=== PATIENT | male | born 1990 | race Caucasian/White ===

== ENCOUNTER 2019-06-02 09:18 | Emergency (ER) | payer OTHER ==
[~2019-06-02] VITALS: Ht 193 cm; Wt 111.1 kg
--- NOTE | ~2019-06-02 | EKG ---
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
--- NOTE | ~2019-06-02 | EKG ---
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
[~2019-06-02 09:18] MED LIST: AMOXICILLIN500 MG PO; ANAPROX DS550 MG PO; ATARAX25 MG PO; AUGMENTIN 875875 MG PO; BACTRIM DS 8001 TA1 PO; ELIMITE 5%60 GM PO; NKHM; PREDNISONE20 MG PO; VICODIN 5/500 505 MG PO; ZITHROMAX Z PA250 MG PO
[2019-06-02 09:40] LABS: BASO # 0.1 10*3/uL (0.0-0.1); BASO % 0.4 % (0.0-1.0); EOS # 0.2 10*3/uL (0.0-0.4); EOS % 1.4 % (1.0-4.0); HEMOGLOBIN 14.4 g/dl (14.0-18.0); LYMPH # 4.3 10*3/uL (1.3-4.4); LYMPH % 33.5 % (27.0-41.0); MEAN CELL VOLUME 87.9 fl (80.0-94.0); MEAN CORPUSCULAR HGB 30.1 pg (27.0-31.0); MEAN CORPUSCULAR HGB CONC 34.3 g/dl (33.0-37.0); MEAN PLATELET VOLUME 9.7 fl (9.6-12.3); MONO # 0.9 10*3/uL (0.1-1.0); MONO % 6.9 % (3.0-9.0); NEUT # 7.4 10*3/uL (2.3-7.9); NEUT % 57.6 % (47.0-73.0); PLATELET COUNT AUTOMATED 287 10*3/uL (130-400); RED BLOOD COUNT 4.78 10*6/uL (4.50-5.90); RED CELL DISTRI WIDTH 12.6 % (0-14.5); WHITE BLOOD COUNT 12.9 10*3/uL (4.8-10.8)
[2019-06-02 09:52] LABS: ACT PARTIAL THROMBO TIME 26.3 SECONDS (20.0-32.1); INTERNATIONAL NORM RATIO 0.9 (2.0-3.5)
[2019-06-02 09:55] LABS: ALBUMIN 4.1 gm/dl (3.1-4.5); ALKALINE PHOSPHATASE 77 U/L (45-117); BUN 11 mg/dl (7-24); CHLORIDE 105 mmol/L (98-107); CREATININE 0.82 mg/dL (0.70-1.30); POTASSIUM 3.4 mmol/L (3.5-5.1); SGOT/AST 17 IU/L (3-35); SGPT/ALT 37 U/L (12-78); SODIUM 139 mmol/L (136-145)
[2019-06-02 09:57] LABS: TROPONIN I < 0.015 ng/ml (<0.045)
[2019-06-02] MEDS ORDERED: NAPROSYN500 MG PO (13:11)
== END 2019-06-02 13:26 | disposition home or self-care (01) ==
LOC: ED 09:18
PROVIDERS: Emergency Medicine
DX: R07.89 Other chest pain (principal); F17.200 Nicotine dependence, unspecified, uncomplicated; X58.XXXA Exposure to other specified factors, initial encounter; Y93.89 Activity, other specified; Y92.89 Other specified places as the place of occurrence of the external cause; Y99.0 Civilian activity done for income or pay

== ENCOUNTER 2019-06-12 08:16 | Emergency (ER) | payer OTHER ==
[~2019-06-12] VITALS: Ht 193 cm; Wt 111.1 kg
[~2019-06-12 08:16] MED LIST changes: +NAPROSYN500 MG PO
[2019-06-12 09:17] LABS: BASO % 0.2 % (0.0-1.0); EOS # 0.1 10*3/uL (0.0-0.4); HEMATOCRIT 43.2 % (42.0-52.0); HEMOGLOBIN 14.4 g/dl (14.0-18.0); LYMPH # 2.7 10*3/uL (1.3-4.4); LYMPH % 22.1 % (27.0-41.0); MEAN CELL VOLUME 88.5 fl (80.0-94.0); MEAN CORPUSCULAR HGB 29.5 pg (27.0-31.0); MEAN CORPUSCULAR HGB CONC 33.3 g/dl (33.0-37.0); MEAN PLATELET VOLUME 9.3 fl (9.6-12.3); MONO # 0.9 10*3/uL (0.1-1.0); MONO % 7.5 % (3.0-9.0); NEUT # 8.5 10*3/uL (2.3-7.9); NEUT % 68.9 % (47.0-73.0); PLATELET COUNT AUTOMATED 273 10*3/uL (130-400); RED BLOOD COUNT 4.88 10*6/uL (4.50-5.90); RED CELL DISTRI WIDTH 12.4 % (0-14.5); WHITE BLOOD COUNT 12.3 10*3/uL (4.8-10.8)
[2019-06-12 09:26] LABS: BILIRUBIN NEGATIVE (NEGATIVE); BLOOD NEGATIVE (NEGATIVE); CLARITY CLEAR (CLEAR); COLOR YELLOW (YELLOW); GLUCOSE NEGATIVE (NEGATIVE); KETONE NEGATIVE (NEGATIVE); LEUKO ESTERASE NEGATIVE (NEGATIVE); NITRITE NEGATIVE (NEGATIVE); PH 6.5 (5.0-9.0); UROBILINOGEN 0.2 E.U./dl (0.2-1.0)
[2019-06-12 09:34] LABS: URINE AMPHETAMINES < 1000 (1000ng/ml); URINE BARBITURATES < 200 (200ng/ml); URINE BENZODIAZEPINES < 200 (200ng/ml); URINE CANNABINOIDS (THC) < 50 (50ng/ml); URINE COCAINE < 300 (300ng/ml); URINE METHADONE < 300 (300ng/ml); URINE OPIATES < 300 (300ng/ml)
[2019-06-12 09:34] LABS: ALBUMIN 4.1 gm/dl (3.1-4.5); ALKALINE PHOSPHATASE 89 U/L (45-117); BUN 11 mg/dl (7-24); CHLORIDE 106 mmol/L (98-107); CREATININE 0.89 mg/dL (0.70-1.30); POTASSIUM 4.1 mmol/L (3.5-5.1); SGOT/AST 21 IU/L (3-35); SGPT/ALT 46 U/L (12-78); SODIUM 139 mmol/L (136-145); TOTAL PROTEIN 7.3 gm/dL (6.4-8.2)
[2019-06-12 09:42] LABS: URINE PHENCYCLIDINE < 25 (25ng/ml)
[2019-06-12 09:43] LABS: ETHYL ALCOHOL < 3.0 mg/dl (<3)
[2019-06-12] MEDS ORDERED: LISINOPRIL10 M1 PO (10:27)
[2019-06-13] MEDS ORDERED: VISTARIL25 M2 PO (17:13)
== END 2019-06-12 10:57 | disposition home or self-care (01) ==
LOC: ED 08:16
PROVIDERS: Emergency Medicine
DX: I10 Essential (primary) hypertension (principal); R55 Syncope and collapse; R06.02 Shortness of breath; Z79.899 Other long term (current) drug therapy

== ENCOUNTER 2019-06-13 14:51 | Emergency (ER) | payer OTHER ==
[~2019-06-13] VITALS: Ht 193 cm; Wt 113.4 kg
[~2019-06-13 14:51] MED LIST changes: +LISINOPRIL10 M1 PO
[2019-06-13 16:01] LABS: BASO % 0.3 % (0.0-1.0); EOS # 0.1 10*3/uL (0.0-0.4); EOS % 1.2 % (1.0-4.0); HEMATOCRIT 41.6 % (42.0-52.0); LYMPH # 3.3 10*3/uL (1.3-4.4); LYMPH % 30.4 % (27.0-41.0); MEAN CELL VOLUME 88.3 fl (80.0-94.0); MEAN CORPUSCULAR HGB 29.7 pg (27.0-31.0); MEAN CORPUSCULAR HGB CONC 33.7 g/dl (33.0-37.0); MEAN PLATELET VOLUME 9.2 fl (9.6-12.3); MONO # 0.7 10*3/uL (0.1-1.0); MONO % 6.8 % (3.0-9.0); NEUT # 6.7 10*3/uL (2.3-7.9); PLATELET COUNT AUTOMATED 266 10*3/uL (130-400); RED BLOOD COUNT 4.71 10*6/uL (4.50-5.90); RED CELL DISTRI WIDTH 12.4 % (0-14.5); WHITE BLOOD COUNT 10.9 10*3/uL (4.8-10.8)
[2019-06-13 16:18] LABS: ALBUMIN 3.7 gm/dl (3.1-4.5); ALKALINE PHOSPHATASE 83 U/L (45-117); BUN 14 mg/dl (7-24); CHLORIDE 105 mmol/L (98-107); CREATININE 0.79 mg/dL (0.70-1.30); LIPASE 68 U/L (73-393); POTASSIUM 3.6 mmol/L (3.5-5.1); SGOT/AST 10 IU/L (3-35); SGPT/ALT 37 U/L (12-78); SODIUM 136 mmol/L (136-145); TOTAL PROTEIN 7.1 gm/dL (6.4-8.2)
[2019-06-13 16:25] LABS: TROPONIN I < 0.015 ng/ml (<0.045)
[2019-06-13] MEDS ORDERED: VISTARIL25 M2 PO (17:13)
== END 2019-06-13 17:41 | disposition home or self-care (01) ==
LOC: ED 14:51
PROVIDERS: Nurse Practitioner Family
DX: F41.9 Anxiety disorder, unspecified (principal); R00.2 Palpitations; R42 Dizziness and giddiness; I10 Essential (primary) hypertension; F17.200 Nicotine dependence, unspecified, uncomplicated; Z79.899 Other long term (current) drug therapy

== ENCOUNTER 2019-06-19 15:02 | Inpatient (IN) | payer OTHER ==
[~2019-06-19] VITALS: Ht 193 cm; Wt 102.7 kg
[~2019-06-19 15:02] MED LIST changes: +VISTARIL25 M2 PO
[2019-06-19 15:03] VITALS: BP 147/90
[2019-06-19 15:40] LABS: BILIRUBIN NEGATIVE (NEGATIVE); BLOOD NEGATIVE (NEGATIVE); CLARITY CLEAR (CLEAR); COLOR YELLOW (YELLOW); GLUCOSE NEGATIVE (NEGATIVE); KETONE NEGATIVE (NEGATIVE); LEUKO ESTERASE NEGATIVE (NEGATIVE); NITRITE NEGATIVE (NEGATIVE); SPECIFIC GRAVITY <= 1.005 (1.005-1.030); UROBILINOGEN 0.2 E.U./dl (0.2-1.0)
[2019-06-19 15:42] LABS: BASO % 0.3 % (0.0-1.0); EOS # 0.2 10*3/uL (0.0-0.4); EOS % 1.3 % (1.0-4.0); HEMATOCRIT 45.2 % (42.0-52.0); HEMOGLOBIN 15.3 g/dl (14.0-18.0); LYMPH # 2.5 10*3/uL (1.3-4.4); LYMPH % 20.8 % (27.0-41.0); MEAN CELL VOLUME 87.9 fl (80.0-94.0); MEAN CORPUSCULAR HGB 29.8 pg (27.0-31.0); MEAN CORPUSCULAR HGB CONC 33.8 g/dl (33.0-37.0); MEAN PLATELET VOLUME 9.2 fl (9.6-12.3); MONO # 0.8 10*3/uL (0.1-1.0); MONO % 6.3 % (3.0-9.0); NEUT # 8.5 10*3/uL (2.3-7.9); NEUT % 71.1 % (47.0-73.0); PLATELET COUNT AUTOMATED 318 10*3/uL (130-400); RED BLOOD COUNT 5.14 10*6/uL (4.50-5.90); RED CELL DISTRI WIDTH 12.1 % (0-14.5); WHITE BLOOD COUNT 11.9 10*3/uL (4.8-10.8)
[2019-06-19 15:49] LABS: URINE AMPHETAMINES < 1000 (1000ng/ml); URINE BARBITURATES < 200 (200ng/ml); URINE BENZODIAZEPINES < 200 (200ng/ml); URINE CANNABINOIDS (THC) < 50 (50ng/ml); URINE COCAINE < 300 (300ng/ml); URINE METHADONE < 300 (300ng/ml); URINE OPIATES < 300 (300ng/ml)
[2019-06-19 15:51] LABS: URINE PHENCYCLIDINE < 25 (25ng/ml)
[2019-06-19 15:57] LABS: ALKALINE PHOSPHATASE 93 U/L (45-117); BUN 8 mg/dl (7-24); CHLORIDE 105 mmol/L (98-107); CREATININE 0.92 mg/dL (0.70-1.30); POTASSIUM 3.9 mmol/L (3.5-5.1); SGOT/AST 13 IU/L (3-35); SGPT/ALT 41 U/L (12-78); SODIUM 137 mmol/L (136-145); TOTAL PROTEIN 7.5 gm/dL (6.4-8.2)
[2019-06-19 16:01] LABS: TROPONIN I < 0.015 ng/ml (<0.045)
[2019-06-19 16:32] VITALS: BP 152/97
[2019-06-19] MEDS ORDERED: PAXIL10 MG PO (17:38)
--- NOTE | 2019-06-19 18:00 | NUR ---
A 29, admitted to , under the services of TYRA Stanford DO with a diagnosis of PALPITATION AND PRESYNCOPE. Chief complaint is PT states that he was in the ER last friday after being at work and he felt like he was having a heart attack. States he had lightheadedness and chest discomfort then. States his BP was elevated and at that time they started him on lisinopril. States that he has been experiencing lightheadedness since then, also states today he vomited 2-3 times, has been shortness of breath and pain in his chest that he described as "tightness and constriction.". Patient arrived via from ER. Monitor applied. Initial assessment completed. Vital signs taken and recorded. See assessment for past medical history, medications and allergies. Patient and/or family oriented to unit. [facility] visitation policy reviewed. AIRAM BOWERS
[2019-06-19 18:13] VITALS: BP 142/78
--- NOTE | 2019-06-19 18:28 | NUR ---
Notified Dr. Hurtado of pt being here. States that is the other team but they were in same room and he would notify them. Reviewed vital signs and rhythm on athletic monitor.
--- NOTE | 2019-06-19 19:10 | NUR ---
Dr. Aldana notified of consult, pt hx, vitals and orders from primary. States he will see pt in am.
[2019-06-19 20:00] VITALS: BP 124/82; BP 140/81
--- NOTE | 2019-06-19 21:15 | NUR ---
BEHAVIORAL HEALTH NOTIFIED OF NEW CONSULT
--- NOTE | 2019-06-19 22:16 | NUR ---
Patient resting quietly with no c/o discomfort. Respirations easy and regular. Vital signs stable. No overt distress. CALL LIGHT WITHIN REACH HISSOM,GARFIELD
--- NOTE | 2019-06-19 23:23 | NUR ---
PATIENT WAS COMPLAINING OF NAUSEA. INFORMED OF PRN ZOFRAN THAT WAS AVAILABLE. PATIENT REFUSING AT THIS TIME, STATED "HE WOULD RATHER WAIT IT OUT" THEN TAKE MEDICINE.
[2019-06-20] VITALS: BP 152/99
--- NOTE | 2019-06-20 02:21 | NUR ---
Patient sleeping. Respirations relaxed and easy. Siderails up . [place] on. CALL LIGHT WITHIN REACH HISSOM,GARFIELD
--- NOTE | 2019-06-20 03:45 | NUR ---
Patient sleeping. Respirations relaxed and easy. Siderails up . [place] on. CALL LIGHT WITHIN REACH HISSOM,GARFIELD
--- NOTE | 2019-06-20 05:27 | NUR ---
24 HR chart check completed.
[2019-06-20 06:07] LABS: BASO % 0.4 % (0.0-1.0); EOS # 0.1 10*3/uL (0.0-0.4); EOS % 1.4 % (1.0-4.0); HEMATOCRIT 43.7 % (42.0-52.0); HEMOGLOBIN 14.5 g/dl (14.0-18.0); LYMPH # 3.1 10*3/uL (1.3-4.4); LYMPH % 33.1 % (27.0-41.0); MEAN CELL VOLUME 88.8 fl (80.0-94.0); MEAN CORPUSCULAR HGB 29.5 pg (27.0-31.0); MEAN CORPUSCULAR HGB CONC 33.2 g/dl (33.0-37.0); MEAN PLATELET VOLUME 9.5 fl (9.6-12.3); MONO # 0.7 10*3/uL (0.1-1.0); MONO % 7.1 % (3.0-9.0); NEUT # 5.5 10*3/uL (2.3-7.9); NEUT % 57.8 % (47.0-73.0); PLATELET COUNT AUTOMATED 310 10*3/uL (130-400); RED BLOOD COUNT 4.92 10*6/uL (4.50-5.90); RED CELL DISTRI WIDTH 12.3 % (0-14.5); WHITE BLOOD COUNT 9.5 10*3/uL (4.8-10.8)
--- NOTE | 2019-06-20 06:12 | NUR ---
NOTIFIED OF PATIENTS LOW HEART RATE OF 43. NO NEW ORDERS RESCIEVED AT THIS TIME.
[2019-06-20 06:26] LABS: ALBUMIN 3.7 gm/dl (3.1-4.5); ALKALINE PHOSPHATASE 83 U/L (45-117); BUN 7 mg/dl (7-24); CHLORIDE 106 mmol/L (98-107); CREATININE 0.82 mg/dL (0.70-1.30); FREE T4 1.05 ng/dl (0.76-1.46); PHOSPHOROUS 3.3 mg/dL (2.5-4.9); POTASSIUM 4.2 mmol/L (3.5-5.1); SGOT/AST 12 IU/L (3-35); SGPT/ALT 35 U/L (12-78); SODIUM 140 mmol/L (136-145); TOTAL PROTEIN 6.9 gm/dL (6.4-8.2)
[2019-06-20 08:00] VITALS: BP 148/62
--- NOTE | 2019-06-20 09:00 | NUR ---
PT RESTING IN BED. PT SEEMS VERY ANXIOUS ABOUT HIS CONDITION. WAS AFRAID TO TAKE ANY MEDICATIONS. DID TAKE PAXIL. CALL LIGHT IN REACH. SEE SHIFT ASSESSMENT.
--- NOTE | 2019-06-20 11:08 | NUR ---
DR. GONZALEZ ON FLOOR MADE AWARE OF PT REFUSING LISINOPIRL BP 148/62.
[2019-06-20 12:00] VITALS: BP 140/90
[2019-06-20 16:00] VITALS: BP 137/72
[2019-06-20 20:00] VITALS: BP 118/72
--- NOTE | 2019-06-20 20:00 | NUR ---
MANUAL PRESSURE TAKEN AT THIS TIME OF 118/72. PATIENT AND MOTHERS CONCERNS/QUESTIONS ADDRESSED. VOICED NO COMPLAINTS. CALL LIGHT WITHIN REACH
[2019-06-21] VITALS: BP 131/71
--- NOTE | 2019-06-21 00:38 | NUR ---
PATIENT HAD AN 11 BEAT RUN OF VENTRICULAR TACHYCARDIA. PATIENT WAS RESTING IN BED WATCHING TV. DR FORREST NOTIFIED. I INFORMED HIM THAT CARDIOLOGY WAS ON AND THAT THE PATIENT WAS HAVING AN ECHO AND STRESS TEST IN THE MORNING. NO NEW ORDERS RECIEVED AT THIS TIME.
--- NOTE | 2019-06-21 00:55 | NUR ---
Patient resting quietly with no c/o discomfort. Respirations easy and regular. Vital signs stable. No overt distress. HISSOM,GARFIELD
--- NOTE | 2019-06-21 01:33 | NUR ---
24 HR chart check completed.
[2019-06-21 06:28] LABS: BASO % 0.4 % (0.0-1.0); EOS # 0.2 10*3/uL (0.0-0.4); EOS % 1.4 % (1.0-4.0); HEMATOCRIT 44.4 % (42.0-52.0); HEMOGLOBIN 15.2 g/dl (14.0-18.0); LYMPH # 3.1 10*3/uL (1.3-4.4); LYMPH % 28.7 % (27.0-41.0); MEAN CELL VOLUME 86.2 fl (80.0-94.0); MEAN CORPUSCULAR HGB 29.5 pg (27.0-31.0); MEAN CORPUSCULAR HGB CONC 34.2 g/dl (33.0-37.0); MEAN PLATELET VOLUME 9.2 fl (9.6-12.3); MONO # 0.7 10*3/uL (0.1-1.0); MONO % 6.5 % (3.0-9.0); NEUT # 6.7 10*3/uL (2.3-7.9); NEUT % 62.7 % (47.0-73.0); PLATELET COUNT AUTOMATED 321 10*3/uL (130-400); RED BLOOD COUNT 5.15 10*6/uL (4.50-5.90); RED CELL DISTRI WIDTH 12.1 % (0-14.5); WHITE BLOOD COUNT 10.7 10*3/uL (4.8-10.8)
--- NOTE | 2019-06-21 06:47 | NUR ---
LEFT A VOICEMAIL ON VOICEMAIL REGARDING 11 BEAT RUN OF VTACH
--- NOTE | 2019-06-21 06:55 | NUR ---
SPOKE WITH DR MARINELLI REGARDING THIS MORNINGS STRESS TEST AND RUN OF VTACH. NO NEW ORDERS RECIEVED
[2019-06-21 07:01] LABS: ALKALINE PHOSPHATASE 89 U/L (45-117); BUN 10 mg/dl (7-24); CHLORIDE 105 mmol/L (98-107); POTASSIUM 4.1 mmol/L (3.5-5.1); SGOT/AST 9 IU/L (3-35); SGPT/ALT 38 U/L (12-78); SODIUM 139 mmol/L (136-145); TOTAL PROTEIN 7.4 gm/dL (6.4-8.2)
[2019-06-21 08:00] VITALS: BP 122/70
--- NOTE | 2019-06-21 09:00 | NUR ---
[employer] in to talk to patient. Patient states lives at home with mom. There are few steps in the home. Physician: benny vera Pharmacy: [facility] health services: none Patient's level of ADLs: INDEPENDENT Patient has working utilities: all working DME: none Follow-up physician's appointment after d/c: will be made by hospitalist nurse director upon discharge Does patient want to access PORTAL?: no Discharge plan discussed with patient he states he lives at home with mom, he is independent in adls and ambulation, works, he states he will return home when medically stable and denies any home needs. ELISABETH CURRIE
--- NOTE | 2019-06-21 10:20 | NUR ---
PT TAKEN OFF FLOOR FOR STRESS TEST.
--- NOTE | 2019-06-21 11:00 | NUR ---
INFORMED SIGNED CONSENT OBTAINED FOR STANDARD GXT WITH DR LEMUS. RESTING EKG NSR HR 64 BP 110/90 IN SUPINE POSITION, STANDING HR 97 BP 122/94. PT COMPLETED 8:00 OF A KALPESH PROTOCOL WITH PT COMPLETING 2:00 OF STAGE III AT 3.4 MPH AND A 14% GRADE. PT REACHED A PEAK HR OF 169 WHICH REPRESENTS 88% OF PREDICTED MAXIMUM AND A PEAK BP OF 160/90. IN RECOVERY PT HAD ISOLATE PAC AND PVC. NO ST CHANGES NOTED. TEST TERMINATED DUE TO FATIGUE. LAST RECOVERY HR OF 107 BP 130/80. PT IN STABLE CONDITION, SITTING WITH HIS MOTHER, AWAITING ECHO.
[2019-06-21 12:00] VITALS: BP 132/86
[2019-06-21] MEDS ORDERED: AMLODIPINE BESYL5 MG PO (14:10)
--- NOTE | 2019-06-21 14:51 | NUR ---
Discharge instructions reviewed with patient/family. Patient receptive and verbalizes understanding. Follow-up care arranged. Written instructions given to patient/family. 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 PATIENT AMBULATORY OFF FLOOR WITH MOTHER. PATRICIA ANDERSON
== END 2019-06-21 14:15 | disposition home or self-care (01) | DRG 312 ==
LOC: ED 15:02 → 4E 17:20 → EDHOLD 17:20 → 4E 17:26
PROVIDERS: Hospitalist; Nurse Practitioner Family; ADMIT Internal Medicine
DX: R55 Syncope and collapse (principal); I47.2 Ventricular tachycardia; R00.2 Palpitations; R07.89 Other chest pain; F41.9 Anxiety disorder, unspecified; R73.9 Hyperglycemia, unspecified; D72.829 Elevated white blood cell count, unspecified; R42 Dizziness and giddiness; R00.1 Bradycardia, unspecified; I10 Essential (primary) hypertension; Z82.49 Family history of ischemic heart disease and other diseases of the circulatory system; Z79.899 Other long term (current) drug therapy

== ENCOUNTER → 2019-07-29 | Outpatient (CLI) | payer OTHER ==
[~2019-07-29] MED LIST changes: +AMLODIPINE BESYL5 MG PO; +PAXIL10 MG PO
[2019-07-29 09:34] LABS: ALBUMIN 3.7 gm/dl (3.1-4.5); ALKALINE PHOSPHATASE 76 U/L (45-117); BILIRUBIN, DIRECT < 0.1 mg/dL (0.0-0.2); SGOT/AST 20 IU/L (3-35); SGPT/ALT 35 U/L (12-78); TOTAL PROTEIN 6.8 gm/dL (6.4-8.2)
[2019-07-30 07:10] LABS: HEPATITIS B SURFACE AG Negative (Negative); HEPATITIS C VIRUS ANTIBODY <0.1 s/co (0.0-0.9)
== END | disposition home or self-care (01) ==
LOC: US 07:30 → LAB 08:17
PROVIDERS: Nurse Practitioner Family
DX: R94.5 Abnormal results of liver function studies (principal)

== ENCOUNTER 2019-08-25 17:11 | Emergency (ER) | payer OTHER ==
[~2019-08-25] VITALS: Ht 193 cm; Wt 108.9 kg
[2019-08-25 18:06] LABS: BASO % 0.3 % (0.0-1.0); EOS # 0.1 10*3/uL (0.0-0.4); EOS % 0.7 % (1.0-4.0); HEMATOCRIT 43.2 % (42.0-52.0); LYMPH # 2.5 10*3/uL (1.3-4.4); LYMPH % 23.1 % (27.0-41.0); MEAN CELL VOLUME 87.3 fl (80.0-94.0); MEAN CORPUSCULAR HGB 30.3 pg (27.0-31.0); MEAN CORPUSCULAR HGB CONC 34.7 g/dl (33.0-37.0); MEAN PLATELET VOLUME 9.5 fl (9.6-12.3); MONO # 0.6 10*3/uL (0.1-1.0); MONO % 5.8 % (3.0-9.0); NEUT # 7.6 10*3/uL (2.3-7.9); NEUT % 69.9 % (47.0-73.0); PLATELET COUNT AUTOMATED 327 10*3/uL (130-400); RED BLOOD COUNT 4.95 10*6/uL (4.50-5.90); RED CELL DISTRI WIDTH 13.1 % (0-14.5); WHITE BLOOD COUNT 10.8 10*3/uL (4.8-10.8)
[2019-08-25 18:16] LABS: ALBUMIN 4.1 gm/dl (3.1-4.5); ALKALINE PHOSPHATASE 84 U/L (45-117); BUN 6 mg/dl (7-24); CHLORIDE 110 mmol/L (98-107); CREATININE 0.83 mg/dL (0.70-1.30); POTASSIUM 3.9 mmol/L (3.5-5.1); SGOT/AST 12 IU/L (3-35); SGPT/ALT 28 U/L (12-78); SODIUM 141 mmol/L (136-145); TOTAL PROTEIN 7.4 gm/dL (6.4-8.2)
[2019-08-25] MEDS ORDERED: ROBAXIN-750750 MG PO (18:48)
[2019-08-25] MEDS ORDERED: PREDNISONE20 M1 PO (18:48)
== END 2019-08-25 20:00 | disposition home or self-care (01) ==
LOC: ED 17:11
PROVIDERS: Physician Assistant
DX: M54.12 Radiculopathy, cervical region (principal); Z79.899 Other long term (current) drug therapy

== ENCOUNTER 2019-08-27 04:50 | Emergency (ER) | payer OTHER ==
[~2019-08-27] VITALS: Ht 193 cm; Wt 108.9 kg
[~2019-08-27 04:50] MED LIST changes: +PREDNISONE20 M1 PO; +ROBAXIN-750750 MG PO
[2019-08-27 06:16] LABS: BASO % 0.1 % (0.0-1.0); EOS % 0.1 % (1.0-4.0); HEMATOCRIT 42.2 % (42.0-52.0); HEMOGLOBIN 14.3 g/dl (14.0-18.0); LYMPH # 3.7 10*3/uL (1.3-4.4); LYMPH % 23.6 % (27.0-41.0); MEAN CORPUSCULAR HGB 30.2 pg (27.0-31.0); MEAN CORPUSCULAR HGB CONC 33.9 g/dl (33.0-37.0); MEAN PLATELET VOLUME 9.3 fl (9.6-12.3); MONO % 6.4 % (3.0-9.0); NEUT # 10.9 10*3/uL (2.3-7.9); NEUT % 69.5 % (47.0-73.0); PLATELET COUNT AUTOMATED 313 10*3/uL (130-400); RED BLOOD COUNT 4.74 10*6/uL (4.50-5.90); RED CELL DISTRI WIDTH 13.3 % (0-14.5); WHITE BLOOD COUNT 15.7 10*3/uL (4.8-10.8)
[2019-08-27 06:30] LABS: ALBUMIN 3.8 gm/dl (3.1-4.5); ALKALINE PHOSPHATASE 71 U/L (45-117); BUN 10 mg/dl (7-24); CHLORIDE 112 mmol/L (98-107); POTASSIUM 3.5 mmol/L (3.5-5.1); SGOT/AST 11 IU/L (3-35); SGPT/ALT 23 U/L (12-78); SODIUM 143 mmol/L (136-145); TOTAL PROTEIN 6.8 gm/dL (6.4-8.2)
[2019-08-27 06:33] LABS: ACETAMINOPHEN (TYLENOL) < 5.0 ug/ml (10-30)
[2019-08-27 06:45] LABS: ETHYL ALCOHOL < 3.0 mg/dl (<3)
[2019-08-28] MEDS ORDERED: AMOXICILLIN500 M2 PO (21:18)
== END 2019-08-27 13:58 | disposition home or self-care (01) ==
LOC: ED 04:50
PROVIDERS: Emergency Medicine Emergency Medical Services
DX: M54.10 Radiculopathy, site unspecified (principal); R25.3 Fasciculation; M62.838 Other muscle spasm; F41.9 Anxiety disorder, unspecified; M54.2 Cervicalgia; R07.9 Chest pain, unspecified; F90.9 Attention-deficit hyperactivity disorder, unspecified type; I10 Essential (primary) hypertension; F17.200 Nicotine dependence, unspecified, uncomplicated; Z79.899 Other long term (current) drug therapy

== ENCOUNTER 2019-08-28 19:55 | Emergency (ER) | payer OTHER ==
[~2019-08-28] VITALS: Ht 187.9 cm; Wt 81.6 kg
[2019-08-28 20:49] LABS: BASO % 0.1 % (0.0-1.0); EOS # 0.1 10*3/uL (0.0-0.4); EOS % 0.4 % (1.0-4.0); HEMATOCRIT 44.1 % (42.0-52.0); HEMOGLOBIN 14.8 g/dl (14.0-18.0); LYMPH # 4.8 10*3/uL (1.3-4.4); MEAN CELL VOLUME 89.6 fl (80.0-94.0); MEAN CORPUSCULAR HGB 30.1 pg (27.0-31.0); MEAN CORPUSCULAR HGB CONC 33.6 g/dl (33.0-37.0); MEAN PLATELET VOLUME 9.2 fl (9.6-12.3); MONO # 1.3 10*3/uL (0.1-1.0); MONO % 6.1 % (3.0-9.0); NEUT # 15.3 10*3/uL (2.3-7.9); PLATELET COUNT AUTOMATED 317 10*3/uL (130-400); RED BLOOD COUNT 4.92 10*6/uL (4.50-5.90); RED CELL DISTRI WIDTH 13.3 % (0-14.5); WHITE BLOOD COUNT 21.6 10*3/uL (4.8-10.8)
[2019-08-28 21:04] LABS: ALKALINE PHOSPHATASE 71 U/L (45-117); BUN 11 mg/dl (7-24); CHLORIDE 110 mmol/L (98-107); CREATININE 0.79 mg/dL (0.70-1.30); POTASSIUM 4.2 mmol/L (3.5-5.1); SGOT/AST < 3 IU/L (3-35); SGPT/ALT 23 U/L (12-78); SODIUM 142 mmol/L (136-145); TOTAL PROTEIN 7.1 gm/dL (6.4-8.2)
[2019-08-28] MEDS ORDERED: AMOXICILLIN500 M2 PO (21:18)
== END 2019-08-28 21:32 | disposition home or self-care (01) ==
LOC: ED 19:55
PROVIDERS: Nurse Practitioner
DX: J02.9 Acute pharyngitis, unspecified (principal); R59.0 Localized enlarged lymph nodes; I10 Essential (primary) hypertension; F17.200 Nicotine dependence, unspecified, uncomplicated; Z79.899 Other long term (current) drug therapy

== ENCOUNTER 2019-09-02 17:46 | Emergency (ER) | payer OTHER ==
[~2019-09-02] VITALS: Ht 193 cm; Wt 106.6 kg
[~2019-09-02 17:46] MED LIST changes: +AMOXICILLIN500 M2 PO
[2019-09-02] MEDS ORDERED: NAPROSYN500 MG PO (19:34)
[2019-09-02] MEDS ORDERED: METHOCARBAMOL500 M1 PO (19:34)
== END 2019-09-02 19:48 | disposition home or self-care (01) ==
LOC: ED 17:46
DX: F41.9 Anxiety disorder, unspecified (principal); R20.0 Anesthesia of skin; M54.2 Cervicalgia; Z79.2 Long term (current) use of antibiotics; Z79.899 Other long term (current) drug therapy

== ENCOUNTER 2019-10-09 09:09 | Emergency (ER) | payer OTHER ==
[~2019-10-09] VITALS: Ht 193 cm; Wt 102.1 kg
[~2019-10-09 09:09] MED LIST changes: +METHOCARBAMOL500 M1 PO
[2019-10-09] MEDS ORDERED: IBUPROFEN600 MG PO (11:22)
== END 2019-10-09 11:24 | disposition home or self-care (01) ==
LOC: ED 09:09
DX: R09.1 Pleurisy (principal); F41.9 Anxiety disorder, unspecified; R07.9 Chest pain, unspecified; R06.02 Shortness of breath; M79.10 Myalgia, unspecified site; Z79.899 Other long term (current) drug therapy

== ENCOUNTER 2019-11-24 22:47 | Emergency (ER) | payer OTHER ==
[~2019-11-24] VITALS: Ht 193 cm; Wt 106.6 kg
[~2019-11-24 22:47] MED LIST changes: +IBUPROFEN600 MG PO
[2019-11-25 00:03] LABS: BASO % 0.3 % (0.0-1.0); EOS # 0.1 10*3/uL (0.0-0.4); EOS % 1.2 % (1.0-4.0); HEMATOCRIT 40.6 % (42.0-52.0); HEMOGLOBIN 13.9 g/dl (14.0-18.0); LYMPH # 3.4 10*3/uL (1.3-4.4); LYMPH % 33.3 % (27.0-41.0); MEAN CELL VOLUME 87.9 fl (80.0-94.0); MEAN CORPUSCULAR HGB 30.1 pg (27.0-31.0); MEAN CORPUSCULAR HGB CONC 34.2 g/dl (33.0-37.0); MONO # 0.7 10*3/uL (0.1-1.0); MONO % 6.9 % (3.0-9.0); NEUT # 5.9 10*3/uL (2.3-7.9); PLATELET COUNT AUTOMATED 275 10*3/uL (130-400); RED BLOOD COUNT 4.62 10*6/uL (4.50-5.90); RED CELL DISTRI WIDTH 12.3 % (0-14.5); WHITE BLOOD COUNT 10.2 10*3/uL (4.8-10.8)
[2019-11-25 00:20] LABS: ALBUMIN 3.8 gm/dl (3.1-4.5); ALKALINE PHOSPHATASE 98 U/L (45-117); BUN 8 mg/dl (7-24); CHLORIDE 106 mmol/L (98-107); CREATININE 0.86 mg/dL (0.70-1.30); POTASSIUM 3.4 mmol/L (3.5-5.1); SGOT/AST 22 IU/L (3-35); SGPT/ALT 50 U/L (12-78); SODIUM 139 mmol/L (136-145)
[2019-11-25 00:28] LABS: TROPONIN I < 0.015 ng/ml (<0.045)
== END 2019-11-25 02:48 | disposition home or self-care (01) ==
LOC: ED 22:47
PROVIDERS: Emergency Medicine
DX: R07.89 Other chest pain (principal); I10 Essential (primary) hypertension; F41.9 Anxiety disorder, unspecified; F17.200 Nicotine dependence, unspecified, uncomplicated; Z79.899 Other long term (current) drug therapy; Z79.2 Long term (current) use of antibiotics

== ENCOUNTER 2019-12-06 05:37 | Emergency (ER) | payer OTHER ==
[~2019-12-06] VITALS: Ht 195.5 cm; Wt 111.1 kg
== END 2019-12-06 06:34 | disposition home or self-care (01) ==
LOC: ED 05:37
DX: F41.0 Panic disorder [episodic paroxysmal anxiety] (principal); R07.89 Other chest pain; G89.29 Other chronic pain; I10 Essential (primary) hypertension; F17.200 Nicotine dependence, unspecified, uncomplicated; Z79.2 Long term (current) use of antibiotics; Z79.899 Other long term (current) drug therapy

== ENCOUNTER → 2019-12-17 | Outpatient (CLI) | payer OTHER | END | disposition home or self-care (01) | LOC: RAD 14:37 | DX: I21.9 Acute myocardial infarction, unspecified (principal); I10 Essential (primary) hypertension; F41.9 Anxiety disorder, unspecified; F17.210 Nicotine dependence, cigarettes, uncomplicated ==

== ENCOUNTER → 2020-01-04 | Outpatient (CLI) | payer OTHER ==
[~2020-01-04] MED LIST changes: +HYDR25T PO; +NORVASC10 MG PO
--- NOTE | 2020-01-04 07:15 | NUR ---
INFORMED CONSENT OBTAINED FOR EXERCISE STRESS ECHO WITH DR. MUNOZ. RESTING EKG NSR WITH A SUPINE HR OF 61 WITH BP OF 110/70 AND HR OF 70 WITH BP OF 112/84 IN STANDING POSITION. PT COMPLETD 8:00 OF A 2:00 KALPESH PROTOCOL WITH COMPLETION OF 2:00 OF STAGE IV AT 4.2 MPH AND 16% GRADE. REACHED A PEAK HR OF 162 WHICH IS 85% OF PREDICTED MAX WITH A PEAK BP OF 164/82. TEST TERMINATED BECAUSE OF FATIGUE. HAD NO CHEST PAIN OR ANY EKG CHANGES. NEGATIVE EXERCISE STRESS ECHO. SEE ECHO DICTATION FOR FULL REPORT. HAS A GOOD EXERCISE TOLERANCE. LAST RECOVERY HR OF 96 WITH BP OF 120/54. IV DISCONTINUED END OF RECOVERY AND DISCHARGED IN STABLE CONDITION.
== END | disposition home or self-care (01) ==
LOC: CARD 00:11
DX: R07.89 Other chest pain (principal)

== ENCOUNTER 2020-06-18 21:06 | Emergency (ER) | payer SELFPAY ==
[~2020-06-18] VITALS: Ht 195.5 cm; Wt 113.4 kg
[2020-06-18 21:29] LABS: BASO % 0.1 % (0.0-1.0); EOS # 0.1 10*3/uL (0.0-0.4); EOS % 0.6 % (1.0-4.0); LYMPH # 2.5 10*3/uL (1.3-4.4); LYMPH % 15.8 % (27.0-41.0); MEAN CELL VOLUME 86.8 fl (80.0-94.0); MEAN CORPUSCULAR HGB 29.2 pg (27.0-31.0); MEAN CORPUSCULAR HGB CONC 33.6 g/dl (33.0-37.0); MEAN PLATELET VOLUME 8.7 fl (9.6-12.3); MONO # 0.8 10*3/uL (0.1-1.0); MONO % 5.1 % (3.0-9.0); NEUT # 12.1 10*3/uL (2.3-7.9); NEUT % 78.1 % (47.0-73.0); PLATELET COUNT AUTOMATED 369 10*3/uL (130-400); RED BLOOD COUNT 5.07 10*6/uL (4.50-5.90); RED CELL DISTRI WIDTH 12.9 % (0-14.5); WHITE BLOOD COUNT 15.5 10*3/uL (4.8-10.8)
[2020-06-18 21:43] LABS: ALKALINE PHOSPHATASE 106 U/L (45-117); BUN 15 mg/dl (7-24); CHLORIDE 108 mmol/L (98-107); CREATININE 0.93 mg/dL (0.70-1.30); POTASSIUM 3.4 mmol/L (3.5-5.1); SGOT/AST 26 IU/L (3-35); SGPT/ALT 49 U/L (12-78); SODIUM 139 mmol/L (136-145); TOTAL PROTEIN 7.5 gm/dL (6.4-8.2)
[2020-06-18 22:55] LABS: BILIRUBIN Negative (Negative); BLOOD Negative (Negative); CLARITY Clear (Clear); COLOR Dark Yellow (Yellow); GLUCOSE Negative (Negative); KETONE Negative (Negative); LEUKO ESTERASE Negative (Negative); NITRITE Negative (Negative); SPECIFIC GRAVITY 1.025 (1.001-1.030)
[2020-06-18 23:05] LABS: BACTERIA TRACE; EPITHELIAL CELLS 0-2; MUCOUS TRACE; RBC 0-2 rbc/hpf (0-2)
== END 2020-06-19 00:20 | disposition home or self-care (01) ==
LOC: ED 21:06
PROVIDERS: Nurse Practitioner
DX: Z20.2 Contact with and (suspected) exposure to infections with a predominantly sexual mode of transmission (principal)

== ENCOUNTER 2020-11-02 21:30 | Emergency (ER) | payer OTHER ==
[~2020-11-02] VITALS: Ht 193 cm; Wt 113.4 kg
[2020-11-02 22:23] LABS: BASO % 0.3 % (0.0-1.0); EOS # 0.1 10*3/uL (0.0-0.4); HEMATOCRIT 42.8 % (42.0-52.0); LYMPH # 2.8 10*3/uL (1.3-4.4); LYMPH % 27.4 % (27.0-41.0); MEAN CELL VOLUME 87.3 fl (80.0-94.0); MEAN CORPUSCULAR HGB 29.8 pg (27.0-31.0); MEAN CORPUSCULAR HGB CONC 34.1 g/dl (33.0-37.0); MEAN PLATELET VOLUME 8.7 fl (9.6-12.3); MONO # 0.7 10*3/uL (0.1-1.0); MONO % 6.5 % (3.0-9.0); NEUT # 6.7 10*3/uL (2.3-7.9); NEUT % 64.5 % (47.0-73.0); PLATELET COUNT AUTOMATED 333 10*3/uL (130-400); WHITE BLOOD COUNT 10.3 10*3/uL (4.8-10.8)
[2020-11-02 22:40] LABS: ALKALINE PHOSPHATASE 116 U/L (45-117); BUN 14 mg/dl (7-24); CHLORIDE 108 mmol/L (98-107); SGOT/AST 12 IU/L (3-35); SGPT/ALT 39 U/L (12-78); SODIUM 139 mmol/L (136-145); TOTAL PROTEIN 7.6 gm/dL (6.4-8.2); TROPONIN I < 0.015 ng/ml (<0.045)
[2020-11-02 22:47] LABS: INTERNATIONAL NORM RATIO 0.9 (2.0-3.5)
[2020-12-14] MEDS ORDERED: SILVADENE20 GM T
== END 2020-11-03 02:05 | disposition home or self-care (01) ==
LOC: ED 21:30
PROVIDERS: Emergency Medicine
DX: R07.89 Other chest pain (principal); R42 Dizziness and giddiness; F41.9 Anxiety disorder, unspecified; I10 Essential (primary) hypertension; K21.9 Gastro-esophageal reflux disease without esophagitis; F17.200 Nicotine dependence, unspecified, uncomplicated; Z79.899 Other long term (current) drug therapy

== ENCOUNTER 2020-12-14 22:59 | Emergency (ER) | payer OTHER ==
[~2020-12-14] VITALS: Ht 193 cm; Wt 104.3 kg
[~2020-12-14 22:59] MED LIST changes: +SILVADENE20 GM T
== END 2020-12-15 00:25 | disposition home or self-care (01) ==
LOC: ED 22:59
DX: T25.122A Burn of first degree of left foot, initial encounter (principal); Z79.899 Other long term (current) drug therapy; X08.8XXA Exposure to other specified smoke, fire and flames, initial encounter; Y93.89 Activity, other specified; Y92.69 Other specified industrial and construction area as the place of occurrence of the external cause; Y99.9 Unspecified external cause status

== ENCOUNTER 2021-01-14 23:39 | Emergency (ER) | payer OTHER ==
[~2021-01-14] VITALS: Ht 193 cm; Wt 108.9 kg
== END 2021-01-15 02:40 | disposition home or self-care (01) ==
LOC: ED 23:39
DX: S62.617A Displaced fracture of proximal phalanx of left little finger, initial encounter for closed fracture (principal); F41.9 Anxiety disorder, unspecified; I10 Essential (primary) hypertension; F17.200 Nicotine dependence, unspecified, uncomplicated; Z79.899 Other long term (current) drug therapy; X58.XXXA Exposure to other specified factors, initial encounter; Y93.89 Activity, other specified; Y92.89 Other specified places as the place of occurrence of the external cause; Y99.8 Other external cause status

== ENCOUNTER → 2021-01-22 | Outpatient (CLI) | payer OTHER | END | disposition home or self-care (01) | LOC: RAD 11:24 | PROVIDERS: ATTEND Orthopaedic Surgery | DX: S62.617D Displaced fracture of proximal phalanx of left little finger, subsequent encounter for fracture with routine healing (principal); X58.XXXD Exposure to other specified factors, subsequent encounter ==

== ENCOUNTER → 2021-01-29 | Outpatient (CLI) | payer OTHER | END | disposition home or self-care (01) | LOC: ORTHO 00:38 | PROVIDERS: ATTEND Orthopaedic Surgery | DX: S62.617D Displaced fracture of proximal phalanx of left little finger, subsequent encounter for fracture with routine healing (principal); X58.XXXD Exposure to other specified factors, subsequent encounter ==

== ENCOUNTER 2021-02-10 01:17 | Emergency (ER) | payer OTHER ==
[~2021-02-10] VITALS: Ht 193 cm; Wt 111.1 kg
== END 2021-02-10 04:39 | disposition home or self-care (01) ==
LOC: ED 01:17
DX: S62.324A Displaced fracture of shaft of fourth metacarpal bone, right hand, initial encounter for closed fracture (principal); S62.326A Displaced fracture of shaft of fifth metacarpal bone, right hand, initial encounter for closed fracture; Y08.89XA Assault by other specified means, initial encounter; Y93.89 Activity, other specified; Y92.89 Other specified places as the place of occurrence of the external cause; Y99.8 Other external cause status

== ENCOUNTER → 2021-03-08 | Outpatient (CLI) | payer BC, OTHER | END | disposition home or self-care (01) | LOC: US 02-22 12:00 | PROVIDERS: ATTEND Family Medicine | DX: L72.8 Other follicular cysts of the skin and subcutaneous tissue (principal); N43.3 Hydrocele, unspecified ==

== ENCOUNTER 2021-05-16 22:29 | Emergency (ER) | payer BC, OTHER ==
[~2021-05-16] VITALS: Ht 195.5 cm; Wt 106.6 kg
[2021-05-17] MEDS ORDERED: AMOXICILLIN500 M2 PO (01:46)
== END 2021-05-17 01:57 | disposition home or self-care (01) ==
LOC: ED 22:29
DX: K08.89 Other specified disorders of teeth and supporting structures (principal); I10 Essential (primary) hypertension

== ENCOUNTER 2021-06-07 00:42 | Emergency (ER) | payer BC, OTHER ==
[~2021-06-07] VITALS: Ht 193 cm; Wt 104.3 kg
[2021-06-07] MEDS ORDERED: AMOXICILLIN500 M2 PO (01:39)
== END 2021-06-07 02:34 | disposition home or self-care (01) ==
LOC: ED 00:42
DX: K04.7 Periapical abscess without sinus (principal); I10 Essential (primary) hypertension; F17.200 Nicotine dependence, unspecified, uncomplicated

== ENCOUNTER 2021-06-18 23:10 | Emergency (ER) | payer BC, OTHER ==
[2021-06-19] MEDS ORDERED: AUGMENTIN 875875 MG PO (00:36)
== END 2021-06-19 00:46 | disposition home or self-care (01) ==
LOC: ED 23:10
DX: J03.90 Acute tonsillitis, unspecified (principal); F41.9 Anxiety disorder, unspecified; I10 Essential (primary) hypertension; F17.200 Nicotine dependence, unspecified, uncomplicated

== ENCOUNTER 2021-07-03 23:01 | Emergency (ER) | payer BC, OTHER ==
[~2021-07-03] VITALS: Ht 193 cm; Wt 106.6 kg
== END 2021-07-03 23:34 | disposition home or self-care (01) ==
LOC: ED 23:01
DX: J02.9 Acute pharyngitis, unspecified (principal); Z20.822 Contact with and (suspected) exposure to COVID-19

== ENCOUNTER 2021-07-15 16:02 | Emergency (ER) | payer BC, OTHER ==
[~2021-07-15] VITALS: Wt 108.9 kg
== END 2021-07-15 17:59 | disposition home or self-care (01) ==
LOC: ED 16:02
DX: R21 Rash and other nonspecific skin eruption (principal); I10 Essential (primary) hypertension

== ENCOUNTER → 2021-07-19 | Outpatient (CLI) | payer BC, OTHER | LOC: WOUNDCARE 03:19 | PROVIDERS: ATTEND Nurse Practitioner Family | DX: L30.9 Dermatitis, unspecified (principal); R21 Rash and other nonspecific skin eruption; I10 Essential (primary) hypertension; F17.290 Nicotine dependence, other tobacco product, uncomplicated; Z72.89 Other problems related to lifestyle ==

== ENCOUNTER 2021-09-15 02:42 | Emergency (ER) | payer BC, OTHER ==
[~2021-09-15] VITALS: Ht 195.5 cm; Wt 102.1 kg
[2021-09-15 04:22] LABS: BASO % 0.3 % (0.0-1.0); EOS # 0.2 10*3/uL (0.0-0.4); EOS % 1.8 % (1.0-4.0); HEMATOCRIT 42.9 % (42.0-52.0); LYMPH # 2.7 10*3/uL (1.3-4.4); LYMPH % 22.8 % (27.0-41.0); MEAN CELL VOLUME 88.5 fl (80.0-94.0); MEAN CORPUSCULAR HGB 30.1 pg (27.0-31.0); MEAN PLATELET VOLUME 9.4 fl (9.6-12.3); MONO # 0.9 10*3/uL (0.1-1.0); MONO % 7.7 % (3.0-9.0); NEUT # 7.8 10*3/uL (2.3-7.9); NEUT % 67.1 % (47.0-73.0); PLATELET COUNT AUTOMATED 294 10*3/uL (130-400); RED BLOOD COUNT 4.85 10*6/uL (4.50-5.90); RED CELL DISTRI WIDTH 12.6 % (0-14.5); WHITE BLOOD COUNT 11.6 10*3/uL (4.8-10.8)
[2021-09-15 04:34] LABS: ALBUMIN 3.5 gm/dl (3.1-4.5); ALKALINE PHOSPHATASE 91 U/L (45-117); BUN 13 mg/dl (7-24); CHLORIDE 111 mmol/L (98-107); POTASSIUM 3.9 mmol/L (3.5-5.1); SGOT/AST 21 IU/L (3-35); SGPT/ALT 56 U/L (12-78); SODIUM 141 mmol/L (136-145); TOTAL PROTEIN 6.7 gm/dL (6.4-8.2)
[2021-09-15 04:52] LABS: BILIRUBIN Negative (Negative); BLOOD Negative (Negative); CLARITY Clear (Clear); COLOR Yellow (Yellow); GLUCOSE Negative (Negative); KETONE Trace (Negative); LEUKO ESTERASE 1+ (Negative); NITRITE Negative (Negative); PH 5.5 (4.5-8.0); SPECIFIC GRAVITY >= 1.030 (1.001-1.030); UROBILINOGEN 0.2 E.U./dl (0.0-1.0)
[2021-09-15 05:15] LABS: BACTERIA 1+; EPITHELIAL CELLS 0-2
[2021-09-15 05:16] LABS: CALCIUM OXALATE CRYSTALS Trace
[2021-09-15] MEDS ORDERED: VIBRAMYCIN100 MG PO (06:13)
== END 2021-09-15 06:07 | disposition home or self-care (01) ==
LOC: ED 02:42
PROVIDERS: Emergency Medicine
DX: L29.9 Pruritus, unspecified (principal); R30.0 Dysuria; Z20.2 Contact with and (suspected) exposure to infections with a predominantly sexual mode of transmission; F17.200 Nicotine dependence, unspecified, uncomplicated

== ENCOUNTER → 2021-09-19 | Outpatient (CLI) | payer BC, OTHER ==
[~2021-09-19] MED LIST changes: +VIBRAMYCIN100 MG PO
[2021-09-20 07:06] LABS: HEP B CORE AB, IGM Negative (Negative); HEPATITIS B SURFACE AG Negative (Negative); HEPATITIS C VIRUS ANTIBODY <0.1 (0.0-0.9)
== END | disposition home or self-care (01) ==
LOC: LAB 16:32
PROVIDERS: ATTEND Family Medicine
DX: A64 Unspecified sexually transmitted disease (principal)

== ENCOUNTER → 2021-10-08 | Outpatient (CLI) | payer BC, OTHER | END | disposition home or self-care (01) | LOC: COVID19 16:27 | PROVIDERS: ATTEND Internal Medicine | DX: Z20.822 Contact with and (suspected) exposure to COVID-19 (principal) ==

== ENCOUNTER 2022-01-22 11:54 | Emergency (ER) | payer BC, OTHER ==
[~2022-01-22] VITALS: Wt 106.6 kg
[2022-01-22] MEDS ORDERED: VIBRAMYCIN100 MG PO ×2 (12:29)
== END 2022-01-22 12:37 | disposition home or self-care (01) ==
LOC: ED 11:54
DX: Z20.2 Contact with and (suspected) exposure to infections with a predominantly sexual mode of transmission (principal)

== ENCOUNTER 2022-02-25 23:16 | Emergency (ER) | payer BC, OTHER ==
[2022-02-26 00:33] LABS: BASO % 0.3 % (0.0-1.0); EOS # 0.2 10*3/uL (0.0-0.4); EOS % 1.2 % (1.0-4.0); HEMATOCRIT 45.1 % (42.0-52.0); LYMPH # 3.6 10*3/uL (1.3-4.4); LYMPH % 27.2 % (27.0-41.0); MEAN CELL VOLUME 88.4 fl (80.0-94.0); MEAN CORPUSCULAR HGB 29.6 pg (27.0-31.0); MEAN CORPUSCULAR HGB CONC 33.5 g/dl (33.0-37.0); MEAN PLATELET VOLUME 9.2 fl (9.6-12.3); MONO # 0.9 10*3/uL (0.1-1.0); MONO % 7.1 % (3.0-9.0); NEUT # 8.3 10*3/uL (2.3-7.9); NEUT % 63.8 % (47.0-73.0); PLATELET COUNT AUTOMATED 276 10*3/uL (130-400); RED CELL DISTRI WIDTH 13.2 % (0-14.5)
[2022-02-26 00:44] LABS: ACT PARTIAL THROMBO TIME 25.3 SECONDS (20.0-32.1); INTERNATIONAL NORM RATIO 0.9 (2.0-3.5)
[2022-02-26 00:53] LABS: BUN 15 mg/dl (7-24); CHLORIDE 107 mmol/L (98-107); CREATININE 0.93 mg/dL (0.70-1.30); POTASSIUM 4.3 mmol/L (3.5-5.1); SGOT/AST 19 IU/L (3-35); SGPT/ALT 35 U/L (12-78); SODIUM 140 mmol/L (136-145); TOTAL PROTEIN 6.9 gm/dL (6.4-8.2)
[2022-02-26 00:54] LABS: ALKALINE PHOSPHATASE 82 U/L (45-117)
== END 2022-02-26 02:06 | disposition left against medical advice (07) ==
LOC: ED 23:16
PROVIDERS: Emergency Medicine
DX: R07.9 Chest pain, unspecified (principal)

== ENCOUNTER 2022-03-02 22:03 | Emergency (ER) | payer BC, OTHER ==
[~2022-03-02] VITALS: Ht 195.5 cm; Wt 108.9 kg
[2022-03-02 22:46] LABS: BASO % 0.3 % (0.0-1.0); EOS # 0.2 10*3/uL (0.0-0.4); EOS % 1.6 % (1.0-4.0); HEMATOCRIT 45.4 % (42.0-52.0); LYMPH # 3.2 10*3/uL (1.3-4.4); LYMPH % 30.8 % (27.0-41.0); MEAN CELL VOLUME 88.2 fl (80.0-94.0); MEAN CORPUSCULAR HGB 29.9 pg (27.0-31.0); MEAN CORPUSCULAR HGB CONC 33.9 g/dl (33.0-37.0); MEAN PLATELET VOLUME 9.5 fl (9.6-12.3); MONO # 0.6 10*3/uL (0.1-1.0); MONO % 5.5 % (3.0-9.0); NEUT # 6.3 10*3/uL (2.3-7.9); NEUT % 61.7 % (47.0-73.0); PLATELET COUNT AUTOMATED 302 10*3/uL (130-400); RED BLOOD COUNT 5.15 10*6/uL (4.50-5.90); RED CELL DISTRI WIDTH 12.9 % (0-14.5); WHITE BLOOD COUNT 10.3 10*3/uL (4.8-10.8)
[2022-03-02 23:02] LABS: ALKALINE PHOSPHATASE 77 U/L (45-117); BUN 10 mg/dl (7-24); CHLORIDE 111 mmol/L (98-107); CREATININE 0.84 mg/dL (0.70-1.30); LIPASE 97 U/L (73-393); POTASSIUM 3.9 mmol/L (3.5-5.1); SGOT/AST 14 IU/L (3-35); SGPT/ALT 32 U/L (12-78); SODIUM 142 mmol/L (136-145); TOTAL PROTEIN 6.9 gm/dL (6.4-8.2)
[2022-03-02] MEDS ORDERED: ZOFRAN4 MG PO (23:31)
== END 2022-03-02 23:41 | disposition home or self-care (01) ==
LOC: ED 22:03
PROVIDERS: Internal Medicine
DX: B34.9 Viral infection, unspecified (principal)

== ENCOUNTER 2022-03-15 00:25 | Emergency (ER) | payer BC, OTHER ==
[~2022-03-15 00:25] MED LIST changes: +ZOFRAN4 MG PO
== END 2022-03-15 00:59 | disposition left against medical advice (07) ==
LOC: ED 00:25
DX: J02.9 Acute pharyngitis, unspecified (principal); Z53.21 Procedure and treatment not carried out due to patient leaving prior to being seen by health care provider

== ENCOUNTER 2022-04-16 18:09 | Emergency (ER) | payer BC, OTHER ==
[~2022-04-16] VITALS: Wt 108.0 kg
[2022-04-16 20:19] LABS: BASO % 0.3 % (0.0-1.0); EOS # 0.1 10*3/uL (0.0-0.4); EOS % 0.9 % (1.0-4.0); HEMATOCRIT 43.8 % (42.0-52.0); LYMPH # 2.4 10*3/uL (1.3-4.4); LYMPH % 23.7 % (27.0-41.0); MEAN CELL VOLUME 86.7 fl (80.0-94.0); MEAN CORPUSCULAR HGB 29.9 pg (27.0-31.0); MEAN CORPUSCULAR HGB CONC 34.5 g/dl (33.0-37.0); MEAN PLATELET VOLUME 9.1 fl (9.6-12.3); MONO # 0.6 10*3/uL (0.1-1.0); MONO % 6.3 % (3.0-9.0); NEUT # 6.8 10*3/uL (2.3-7.9); NEUT % 68.7 % (47.0-73.0); PLATELET COUNT AUTOMATED 274 10*3/uL (130-400); RED BLOOD COUNT 5.05 10*6/uL (4.50-5.90); RED CELL DISTRI WIDTH 12.6 % (0-14.5)
[2022-04-16 20:38] LABS: ACT PARTIAL THROMBO TIME 27.9 SECONDS (20.0-32.1)
[2022-04-16 20:48] LABS: ALKALINE PHOSPHATASE 87 U/L (45-117); BUN 11 mg/dl (7-24); CHLORIDE 109 mmol/L (98-107); CREATININE 0.82 mg/dL (0.70-1.30); LIPASE 84 U/L (73-393); POTASSIUM 4.1 mmol/L (3.5-5.1); SGOT/AST 16 IU/L (3-35); SGPT/ALT 43 U/L (12-78); SODIUM 140 mmol/L (136-145)
[2022-04-16 21:48] LABS: BILIRUBIN Negative (Negative); BLOOD Negative (Negative); CLARITY Clear (Clear); COLOR Yellow (Yellow); GLUCOSE Negative (Negative); KETONE Negative (Negative); LEUKO ESTERASE 1+ (Negative); NITRITE Negative (Negative); SPECIFIC GRAVITY <= 1.005 (1.001-1.030); UROBILINOGEN 0.2 E.U./dl (0.0-1.0)
[2022-04-16 22:14] LABS: BACTERIA 1+; RBC 0-2 rbc/hpf (0-2)
== END 2022-04-16 23:00 | disposition home or self-care (01) ==
LOC: ED 18:09
PROVIDERS: Physician Assistant
DX: R07.89 Other chest pain (principal)

== ENCOUNTER 2022-09-10 00:17 | Emergency (ER) | payer BC, OTHER ==
[2022-09-10] MEDS ORDERED: VIBRAMYCIN100 MG PO (00:43)
== END 2022-09-10 00:46 | disposition home or self-care (01) ==
LOC: ED 00:17
DX: A64 Unspecified sexually transmitted disease (principal); L02.412 Cutaneous abscess of left axilla; F10.90 Alcohol use, unspecified, uncomplicated

== ENCOUNTER 2023-03-01 03:54 | Emergency (ER) | payer OTHER ==
[~2023-03-01] VITALS: Ht 195.5 cm; Wt 122.5 kg
== END 2023-03-01 04:47 | disposition home or self-care (01) ==
LOC: ED 03:54
DX: A64 Unspecified sexually transmitted disease (principal); I10 Essential (primary) hypertension; K21.9 Gastro-esophageal reflux disease without esophagitis

== ENCOUNTER 2023-04-30 19:09 | Emergency (ER) | payer OTHER ==
[~2023-04-30] VITALS: Ht 195.5 cm; Wt 122.5 kg
[2023-04-30 20:00] LABS: BASO % 0.3 % (0.0-1.0); EOS # 0.1 10*3/uL (0.0-0.4); EOS % 1.5 % (1.0-4.0); HEMATOCRIT 40.7 % (42.0-52.0); MEAN CELL VOLUME 88.7 fl (80.0-94.0); MEAN CORPUSCULAR HGB 30.1 pg (27.0-31.0); MEAN CORPUSCULAR HGB CONC 33.9 g/dl (33.0-37.0); MEAN PLATELET VOLUME 9.2 fl (9.6-12.3); MONO # 0.5 10*3/uL (0.1-1.0); NEUT # 5.3 10*3/uL (2.3-7.9); PLATELET COUNT AUTOMATED 300 10*3/uL (130-400); RED BLOOD COUNT 4.59 10*6/uL (4.50-5.90); RED CELL DISTRI WIDTH 12.5 % (0-14.5)
[2023-04-30 20:12] LABS: ACT PARTIAL THROMBO TIME 29.2 SECONDS (20.0-32.1)
[2023-04-30 20:22] LABS: ALKALINE PHOSPHATASE 87 U/L (46-116); BUN 7 mg/dl (9-23); CHLORIDE 110 mmol/L (98-107); SGPT/ALT 25 U/L (10-49); TOTAL PROTEIN 6.8 gm/dL (6.0-8.0)
[2023-04-30] MEDS ORDERED: VIBRAMYCIN100 MG PO (21:05)
[2023-04-30 21:08] LABS: BILIRUBIN Negative (Negative); BLOOD Negative (Negative); CLARITY Clear (Clear); COLOR Yellow (Yellow); GLUCOSE Negative (Negative); KETONE Negative (Negative); LEUKO ESTERASE 1+ (Negative); NITRITE Negative (Negative)
[2023-04-30 21:16] LABS: RBC 0-2 rbc/hpf (0-2)
[2023-04-30 21:17] LABS: BACTERIA 1+; MUCOUS 2+
== END 2023-04-30 21:30 | disposition home or self-care (01) ==
LOC: ED 19:09
PROVIDERS: Emergency Medicine
DX: R55 Syncope and collapse (principal); A64 Unspecified sexually transmitted disease; I10 Essential (primary) hypertension; K21.9 Gastro-esophageal reflux disease without esophagitis

== ENCOUNTER 2023-06-07 19:02 | Emergency (ER) | payer OTHER ==
[~2023-06-07] VITALS: Ht 195.5 cm; Wt 122.5 kg
== END 2023-06-07 21:01 | disposition home or self-care (01) ==
LOC: ED 19:02
DX: M25.511 Pain in right shoulder (principal); M54.2 Cervicalgia; Z20.2 Contact with and (suspected) exposure to infections with a predominantly sexual mode of transmission; X50.9XXA Other and unspecified overexertion or strenuous movements or postures, initial encounter; Y93.89 Activity, other specified; Y92.89 Other specified places as the place of occurrence of the external cause; Y99.8 Other external cause status

== ENCOUNTER 2023-06-22 23:02 | Emergency (ER) | payer OTHER ==
[~2023-06-22] VITALS: Ht 195.5 cm; Wt 113.4 kg
== END 2023-06-23 01:14 | disposition home or self-care (01) ==
LOC: ED 23:02
DX: M25.511 Pain in right shoulder (principal); I10 Essential (primary) hypertension; K21.9 Gastro-esophageal reflux disease without esophagitis

== ENCOUNTER 2023-06-28 16:06 | Emergency (ER) | payer OTHER ==
[~2023-06-28] VITALS: Ht 195.5 cm; Wt 122.5 kg
[2023-06-28] MEDS ORDERED: MELOXICAM15 MG PO (16:31)
[2023-06-28] MEDS ORDERED: PREDNISONE20 M1 PO (16:31)
== END 2023-06-28 16:44 | disposition home or self-care (01) ==
LOC: ED 16:06
DX: M25.511 Pain in right shoulder (principal); M75.41 Impingement syndrome of right shoulder; I10 Essential (primary) hypertension; K21.9 Gastro-esophageal reflux disease without esophagitis; F17.290 Nicotine dependence, other tobacco product, uncomplicated

== ENCOUNTER 2023-07-29 00:55 | Emergency (ER) | payer BC, OTHER ==
[~2023-07-29] VITALS: Ht 195.5 cm; Wt 124.7 kg
[~2023-07-29 00:55] MED LIST changes: +MELOXICAM15 MG PO
== END 2023-07-29 02:05 | disposition home or self-care (01) ==
LOC: ED 00:55
DX: Z20.2 Contact with and (suspected) exposure to infections with a predominantly sexual mode of transmission (principal); I10 Essential (primary) hypertension; K21.9 Gastro-esophageal reflux disease without esophagitis

== ENCOUNTER 2023-08-02 00:47 | Emergency (ER) | payer BC, OTHER ==
[~2023-08-02] VITALS: Ht 195.5 cm; Wt 127.0 kg
[2023-08-02 01:24] LABS: BILIRUBIN Negative (Negative); BLOOD Negative (Negative); CLARITY Clear (Clear); COLOR Yellow (Yellow); GLUCOSE Negative (Negative); KETONE Trace (Negative); LEUKO ESTERASE Negative (Negative); NITRITE Negative (Negative); SPECIFIC GRAVITY 1.025 (1.001-1.030)
[2023-08-02 01:37] LABS: RBC 0-2 rbc/hpf (0-2); WBC 0-2 wbc/hpf (0-5)
[2023-08-02] MEDS ORDERED: VIBRAMYCIN100 MG PO ×2 (02:01→16:16)
== END 2023-08-02 02:08 | disposition home or self-care (01) ==
LOC: ED 00:47
PROVIDERS: Internal Medicine
DX: L73.2 Hidradenitis suppurativa (principal); I10 Essential (primary) hypertension; K21.9 Gastro-esophageal reflux disease without esophagitis

== ENCOUNTER 2023-08-13 21:57 | Emergency (ER) | payer BC, OTHER ==
[~2023-08-13] VITALS: Ht 195.5 cm; Wt 127.0 kg
== END 2023-08-13 22:42 | disposition home or self-care (01) ==
LOC: ED 21:57
DX: S91.301A Unspecified open wound, right foot, initial encounter (principal); I10 Essential (primary) hypertension; K21.9 Gastro-esophageal reflux disease without esophagitis; W22.8XXA Striking against or struck by other objects, initial encounter; Y93.89 Activity, other specified; Y92.89 Other specified places as the place of occurrence of the external cause; Y99.8 Other external cause status

== ENCOUNTER 2023-08-18 18:10 | Emergency (ER) | payer BC, OTHER ==
[~2023-08-18] VITALS: Ht 195.5 cm; Wt 127.0 kg
[2023-08-18 19:25] LABS: BASO % 0.2 % (0.0-1.0); EOS # 0.2 10*3/uL (0.0-0.4); EOS % 1.5 % (1.0-4.0); HEMATOCRIT 42.2 % (42.0-52.0); LYMPH # 2.3 10*3/uL (1.3-4.4); LYMPH % 18.7 % (27.0-41.0); MEAN CORPUSCULAR HGB 29.5 pg (27.0-31.0); MEAN CORPUSCULAR HGB CONC 33.9 g/dl (33.0-37.0); MEAN PLATELET VOLUME 8.9 fl (9.6-12.3); MONO # 0.9 10*3/uL (0.1-1.0); MONO % 6.9 % (3.0-9.0); NEUT # 8.9 10*3/uL (2.3-7.9); NEUT % 72.5 % (47.0-73.0); PLATELET COUNT AUTOMATED 313 10*3/uL (130-400); RED BLOOD COUNT 4.85 10*6/uL (4.50-5.90); RED CELL DISTRI WIDTH 12.7 % (0-14.5); WHITE BLOOD COUNT 12.3 10*3/uL (4.8-10.8)
[2023-08-18 19:48] LABS: ALKALINE PHOSPHATASE 102 U/L (46-116); BUN 7 mg/dl (9-23); CHLORIDE 107 mmol/L (98-107); POTASSIUM 3.9 mmol/L (3.4-5.1); SGPT/ALT 31 U/L (5-49); TOTAL PROTEIN 6.8 gm/dL (6.0-8.0)
[2023-08-18 21:05] LABS: BILIRUBIN Negative (Negative); BLOOD Negative (Negative); CLARITY Clear (Clear); COLOR Yellow (Yellow); GLUCOSE Negative (Negative); KETONE Negative (Negative); LEUKO ESTERASE Negative (Negative); NITRITE Negative (Negative); PH 7.5 (4.5-8.0); SPECIFIC GRAVITY <= 1.005 (1.001-1.030); UROBILINOGEN 0.2 E.U./dl (0.0-1.0)
[2023-08-18 21:28] LABS: WBC 0-2 wbc/hpf (0-5)
[2023-08-18] MEDS ORDERED: CLINDAMYCIN HC300 MG PO (21:49)
== END 2023-08-18 22:22 | disposition home or self-care (01) ==
LOC: ED 18:10
PROVIDERS: Nurse Practitioner Family
DX: L03.317 Cellulitis of buttock (principal); L73.2 Hidradenitis suppurativa; F41.9 Anxiety disorder, unspecified; R73.9 Hyperglycemia, unspecified; I10 Essential (primary) hypertension; K21.9 Gastro-esophageal reflux disease without esophagitis; R53.83 Other fatigue

== ENCOUNTER → 2023-09-13 | Outpatient (CLI) | payer BC, OTHER ==
[~2023-09-13] MED LIST changes: +CLINDAMYCIN HC300 MG PO
[2023-09-13 09:15] LABS: HEMATOCRIT 47.9 % (42.0-52.0); MEAN CELL VOLUME 88.1 fl (80.0-94.0); MEAN CORPUSCULAR HGB 29.8 pg (27.0-31.0); MEAN CORPUSCULAR HGB CONC 33.8 g/dl (33.0-37.0); RED BLOOD COUNT 5.44 10*6/uL (4.50-5.90); RED CELL DISTRI WIDTH 12.9 % (0-14.5); WHITE BLOOD COUNT 12.9 10*3/uL (4.8-10.8)
[2023-09-13 09:43] LABS: ALKALINE PHOSPHATASE 99 U/L (46-116); BUN 12 mg/dl (9-23); CHLORIDE 106 mmol/L (98-107); CHOLESTEROL 215 mg/dL (<200); LDL CHOLESTEROL 159 mg/dL (9-159); POTASSIUM 3.9 mmol/L (3.4-5.1); SGPT/ALT 46 U/L (5-49); TOTAL PROTEIN 7.9 gm/dL (6.0-8.0); TRIGLYCERIDES 82 mg/dl (<150)
[2023-09-13 10:43] LABS: VITAMIN D, 25-HYDROXY 10.9 ng/mL (30-100)
[2023-09-14 09:06] LABS: HBSAG Negative (Negative); HEP B CORE AB, IGM Negative (Negative); HEPATITIS C ANTIBODY Non Reactive (Non Reactive)
== END | disposition home or self-care (01) ==
LOC: LAB 08:53
PROVIDERS: ATTEND Family Medicine
DX: Z13.220 Encounter for screening for lipoid disorders (principal); E55.9 Vitamin D deficiency, unspecified; R21 Rash and other nonspecific skin eruption; Z20.2 Contact with and (suspected) exposure to infections with a predominantly sexual mode of transmission

== ENCOUNTER → 2023-10-13 | Outpatient (CLI) | payer BC, OTHER | END | disposition home or self-care (01) | LOC: LAB 10:19 | PROVIDERS: ATTEND Family Medicine | DX: K52.9 Noninfective gastroenteritis and colitis, unspecified (principal) ==

== ENCOUNTER → 2023-10-18 | Outpatient (CLI) | payer BC, OTHER ==
[2023-10-18 07:58] LABS: HEMATOCRIT 45.4 % (42.0-52.0); MEAN CELL VOLUME 88.2 fl (80.0-94.0); MEAN CORPUSCULAR HGB 29.5 pg (27.0-31.0); MEAN CORPUSCULAR HGB CONC 33.5 g/dl (33.0-37.0); MEAN PLATELET VOLUME 8.6 fl (9.6-12.3); RED BLOOD COUNT 5.15 10*6/uL (4.50-5.90); RED CELL DISTRI WIDTH 13.2 % (0-14.5); WHITE BLOOD COUNT 14.7 10*3/uL (4.8-10.8)
[2023-10-18 08:26] LABS: ALKALINE PHOSPHATASE 82 U/L (46-116); BUN 13 mg/dl (9-23); CHLORIDE 105 mmol/L (98-107); POTASSIUM 3.9 mmol/L (3.4-5.1); SGPT/ALT 42 U/L (5-49); TOTAL PROTEIN 7.1 gm/dL (6.0-8.0)
== END | disposition home or self-care (01) ==
LOC: LAB 07:41
PROVIDERS: ATTEND Family Medicine
DX: D72.829 Elevated white blood cell count, unspecified (principal); K52.9 Noninfective gastroenteritis and colitis, unspecified

== ENCOUNTER → 2023-10-27 | Outpatient (CLI) | payer BC, OTHER | END | disposition home or self-care (01) | LOC: LAB 11:41 | PROVIDERS: ATTEND Family Medicine | DX: K52.9 Noninfective gastroenteritis and colitis, unspecified (principal) ==

== ENCOUNTER → 2023-10-30 | Outpatient (CLI) | payer BC, OTHER | END | disposition home or self-care (01) | LOC: CT 15:21 | PROVIDERS: ATTEND Family Medicine | DX: K63.89 Other specified diseases of intestine (principal); R10.9 Unspecified abdominal pain; K52.9 Noninfective gastroenteritis and colitis, unspecified; K76.0 Fatty (change of) liver, not elsewhere classified ==

== ENCOUNTER 2023-12-01 23:57 | Emergency (ER) | payer BC, OTHER ==
[~2023-12-01] VITALS: Ht 195.5 cm; Wt 117.9 kg
[2023-12-02 00:33] LABS: BASO # 0.1 10*3/uL (0.0-0.1); BASO % 0.4 % (0.0-1.0); EOS # 0.2 10*3/uL (0.0-0.4); EOS % 1.3 % (1.0-4.0); HEMATOCRIT 47.9 % (42.0-52.0); LYMPH # 3.3 10*3/uL (1.3-4.4); LYMPH % 27.8 % (27.0-41.0); MEAN CELL VOLUME 86.9 fl (80.0-94.0); MEAN CORPUSCULAR HGB 29.4 pg (27.0-31.0); MEAN CORPUSCULAR HGB CONC 33.8 g/dl (33.0-37.0); MEAN PLATELET VOLUME 8.9 fl (9.6-12.3); MONO % 8.1 % (3.0-9.0); NEUT # 7.4 10*3/uL (2.3-7.9); NEUT % 62.2 % (47.0-73.0); PLATELET COUNT AUTOMATED 341 10*3/uL (130-400); RED BLOOD COUNT 5.51 10*6/uL (4.50-5.90); RED CELL DISTRI WIDTH 12.7 % (0-14.5); WHITE BLOOD COUNT 11.9 10*3/uL (4.8-10.8)
[2023-12-02 00:59] LABS: ALKALINE PHOSPHATASE 101 U/L (46-116); BUN 9 mg/dl (9-23); CHLORIDE 106 mmol/L (98-107); POTASSIUM 4.3 mmol/L (3.4-5.1); SGPT/ALT 40 U/L (5-49); TOTAL PROTEIN 7.4 gm/dL (6.0-8.0)
== END 2023-12-02 01:37 | disposition home or self-care (01) ==
LOC: ED 23:57
PROVIDERS: Internal Medicine
DX: R07.89 Other chest pain (principal); M54.9 Dorsalgia, unspecified; I10 Essential (primary) hypertension; K21.9 Gastro-esophageal reflux disease without esophagitis

== ENCOUNTER 2023-12-14 21:45 | Emergency (ER) | payer BC, OTHER ==
[~2023-12-14] VITALS: Ht 195.5 cm; Wt 122.5 kg
[2023-12-14] MEDS ORDERED: VIBRAMYCIN100 MG PO (22:08)
[2023-12-14] MEDS ORDERED: Doxycycline Hyclate 100 MG CAP PO ONE (22:10)
== END 2023-12-14 22:53 | disposition home or self-care (01) ==
LOC: ED 21:45
DX: L73.2 Hidradenitis suppurativa (principal); I10 Essential (primary) hypertension; K21.9 Gastro-esophageal reflux disease without esophagitis

== ENCOUNTER 2023-12-16 20:46 | Emergency (ER) | payer BC, OTHER ==
[~2023-12-16] VITALS: Ht 195.5 cm; Wt 122.5 kg
[2023-12-16 21:34] LABS: BASO % 0.3 % (0.0-1.0); EOS # 0.2 10*3/uL (0.0-0.4); EOS % 1.4 % (1.0-4.0); HEMATOCRIT 43.1 % (42.0-52.0); LYMPH # 3.1 10*3/uL (1.3-4.4); LYMPH % 28.7 % (27.0-41.0); MEAN CELL VOLUME 86.5 fl (80.0-94.0); MEAN CORPUSCULAR HGB 29.1 pg (27.0-31.0); MEAN CORPUSCULAR HGB CONC 33.6 g/dl (33.0-37.0); MEAN PLATELET VOLUME 8.6 fl (9.6-12.3); MONO # 0.8 10*3/uL (0.1-1.0); MONO % 7.5 % (3.0-9.0); NEUT # 6.7 10*3/uL (2.3-7.9); NEUT % 61.9 % (47.0-73.0); PLATELET COUNT AUTOMATED 311 10*3/uL (130-400); RED BLOOD COUNT 4.98 10*6/uL (4.50-5.90); RED CELL DISTRI WIDTH 12.9 % (0-14.5); WHITE BLOOD COUNT 10.8 10*3/uL (4.8-10.8)
[2023-12-16 21:58] LABS: ALKALINE PHOSPHATASE 90 U/L (46-116); BUN 8 mg/dl (9-23); CHLORIDE 107 mmol/L (98-107); POTASSIUM 4.1 mmol/L (3.4-5.1); SGPT/ALT 33 U/L (5-49); TOTAL PROTEIN 6.8 gm/dL (6.0-8.0)
[2023-12-17] MEDS ORDERED: LORazepam 1 MG TAB PO ONE (00:05)
== END 2023-12-17 00:16 | disposition home or self-care (01) ==
LOC: ED 20:46
PROVIDERS: Internal Medicine
DX: R07.89 Other chest pain (principal); F41.1 Generalized anxiety disorder; R06.02 Shortness of breath

== ENCOUNTER → 2023-12-18 | Outpatient (CLI) | payer BC, OTHER ==
[~2023-12-18] MED LIST changes: +IOHEXOL 300 MG/ML 100 ML VIAL IV ONE
== END | disposition home or self-care (01) ==
LOC: CT 12-11 01:53
PROVIDERS: ATTEND Family Medicine
DX: R91.8 Other nonspecific abnormal finding of lung field (principal); F17.210 Nicotine dependence, cigarettes, uncomplicated

== ENCOUNTER → 2024-01-27 | Outpatient (CLI) | payer BC, OTHER ==
[~2024-01-27] MED LIST changes: -IOHEXOL 300 MG/ML 100 ML VIAL IV ONE
== END | disposition home or self-care (01) ==
LOC: CARD 00:12
PROVIDERS: ATTEND Internal Medicine Cardiovascular Disease
DX: R06.00 Dyspnea, unspecified (principal); R07.89 Other chest pain

== ENCOUNTER 2024-02-15 21:47 | Emergency (ER) | payer BC, OTHER ==
[~2024-02-15] VITALS: Ht 195.5 cm; Wt 113.4 kg
[2024-02-15] MEDS ORDERED: Doxycycline Hyclate 100 MG CAP PO ONE (22:30)
[2024-02-15] MEDS ORDERED: Water, Sterile 10 ML VIAL ONE ×2 (22:43)
== END 2024-02-15 22:43 | disposition home or self-care (01) ==
LOC: ED 21:47
DX: R05.9 Cough, unspecified (principal); J02.9 Acute pharyngitis, unspecified; I10 Essential (primary) hypertension; K21.9 Gastro-esophageal reflux disease without esophagitis

== ENCOUNTER 2024-02-18 11:38 | Emergency (ER) | payer BC, OTHER ==
[~2024-02-18] VITALS: Ht 195.5 cm; Wt 113.4 kg
[2024-02-19 05:07] LABS: HBSAG Negative (Negative); HEP B CORE AB, IGM Negative (Negative); HEPATITIS C ANTIBODY Non Reactive (Non Reactive)
== END 2024-02-18 12:31 | disposition home or self-care (01) ==
LOC: ED 11:38
PROVIDERS: Emergency Medicine
DX: R50.9 Fever, unspecified (principal); J02.9 Acute pharyngitis, unspecified; I10 Essential (primary) hypertension; K21.9 Gastro-esophageal reflux disease without esophagitis

== ENCOUNTER → 2024-02-27 | Outpatient (CLI) | payer BC, OTHER ==
[2024-02-27 12:18] LABS: BASO % 0.3 % (0.0-1.0); EOS # 0.1 10*3/uL (0.0-0.4); HEMATOCRIT 42.8 % (42.0-52.0); LYMPH # 2.7 10*3/uL (1.3-4.4); LYMPH % 23.3 % (27.0-41.0); MEAN CELL VOLUME 87.5 fl (80.0-94.0); MEAN CORPUSCULAR HGB 29.7 pg (27.0-31.0); MEAN CORPUSCULAR HGB CONC 33.9 g/dl (33.0-37.0); MONO # 0.6 10*3/uL (0.1-1.0); MONO % 4.9 % (3.0-9.0); NEUT # 8.1 10*3/uL (2.3-7.9); NEUT % 70.2 % (47.0-73.0); PLATELET COUNT AUTOMATED 316 10*3/uL (130-400); RED BLOOD COUNT 4.89 10*6/uL (4.50-5.90); RED CELL DISTRI WIDTH 13.5 % (0-14.5); WHITE BLOOD COUNT 11.5 10*3/uL (4.8-10.8)
[2024-02-27 12:56] LABS: ALKALINE PHOSPHATASE 84 U/L (46-116); BUN 9 mg/dl (9-23); CHLORIDE 107 mmol/L (98-107); POTASSIUM 3.8 mmol/L (3.4-5.1); SGPT/ALT 43 U/L (5-49)
== END ==
LOC: LAB 11:45
PROVIDERS: ATTEND Internal Medicine Critical Care Medicine
DX: R91.8 Other nonspecific abnormal finding of lung field (principal); R06.00 Dyspnea, unspecified

== ENCOUNTER 2024-05-11 08:27 | Emergency (ER) | payer OTHER ==
[~2024-05-11] VITALS: Ht 195.5 cm; Wt 108.9 kg
[~2024-05-11 08:27] MED LIST changes: -ASPERCREME LID1 EACH T; -Motrin,Rufen400 MG PO; -TYLENOL EXTRA500 MG PO
[2024-05-11] MEDS ORDERED: ASPERCREME LID1 EACH T (10:49)
[2024-05-11] MEDS ORDERED: TYLENOL EXTRA500 MG PO (10:49)
[2024-05-11] MEDS ORDERED: Motrin,Rufen400 MG PO (10:49)
[2024-05-11] MEDS ORDERED: ACETAMINOPHEN 325 MG TAB PO ONE (10:50)
[2024-05-11] MEDS ORDERED: IBUPROFEN 400 MG TAB PO ONE (10:50)
== END 2024-05-11 10:53 | disposition home or self-care (01) ==
LOC: ED 08:27
DX: R07.89 Other chest pain (principal); M79.602 Pain in left arm; F41.9 Anxiety disorder, unspecified; I10 Essential (primary) hypertension; K21.9 Gastro-esophageal reflux disease without esophagitis; F17.200 Nicotine dependence, unspecified, uncomplicated

== ENCOUNTER → 2024-05-11 | Outpatient (CLI) | payer OTHER ==
[~2024-05-11] MED LIST changes: +ASPERCREME LID1 EACH T; +Motrin,Rufen400 MG PO; +TYLENOL EXTRA500 MG PO
[2024-05-11 17:31] LABS: MEAN CELL VOLUME 86.8 fl (80.0-94.0); MEAN CORPUSCULAR HGB 31.2 pg (27.0-31.0); MEAN PLATELET VOLUME 9.1 fl (9.6-12.3); RED BLOOD COUNT 4.84 10*6/uL (4.50-5.90); RED CELL DISTRI WIDTH 13.3 % (0-14.5); WHITE BLOOD COUNT 12.5 10*3/uL (4.8-10.8)
[2024-05-11 18:00] LABS: ALKALINE PHOSPHATASE 92 U/L (46-116); BUN 13 mg/dl (9-23); CHLORIDE 107 mmol/L (98-107); CHOLESTEROL 212 mg/dL (<200); LDL CHOLESTEROL 146 mg/dL (9-159); POTASSIUM 3.7 mmol/L (3.4-5.1); SGPT/ALT 43 U/L (5-49); TOTAL PROTEIN 7.1 gm/dL (6.0-8.0); TRIGLYCERIDES 170 mg/dl (<150)
== END | disposition home or self-care (01) ==
LOC: LAB 17:06
PROVIDERS: ATTEND Family Medicine
DX: R06.02 Shortness of breath (principal); E78.00 Pure hypercholesterolemia, unspecified; R07.9 Chest pain, unspecified; R60.1 Generalized edema; G89.29 Other chronic pain

== ENCOUNTER → 2024-05-26 | Outpatient (CLI) | payer OTHER ==
[~2024-05-26] MED LIST changes: +ASPERCREME LID1 EACH T; +Motrin,Rufen400 MG PO; +TYLENOL EXTRA500 MG PO
[2024-05-26 17:15] LABS: HEMATOCRIT 41.8 % (42.0-52.0); MEAN CELL VOLUME 87.8 fl (80.0-94.0); MEAN CORPUSCULAR HGB CONC 34.2 g/dl (33.0-37.0); MEAN PLATELET VOLUME 9.1 fl (9.6-12.3); RED BLOOD COUNT 4.76 10*6/uL (4.50-5.90); RED CELL DISTRI WIDTH 13.1 % (0-14.5); WHITE BLOOD COUNT 11.9 10*3/uL (4.8-10.8)
== END | disposition home or self-care (01) ==
LOC: LAB 17:02
PROVIDERS: ATTEND Family Medicine
DX: L03.90 Cellulitis, unspecified (principal); D72.829 Elevated white blood cell count, unspecified

== ENCOUNTER 2024-09-01 17:58 | Emergency (ER) | payer BC ==
[~2024-09-01] VITALS: Ht 195.5 cm; Wt 117.9 kg
[2024-09-01] MEDS ORDERED: SODIUM CHLORIDE 0.9% 500 ML IV ONE (18:20)
[2024-09-01 18:32] LABS: BASO % 0.4 % (0.0-1.0); EOS # 0.3 10*3/uL (0.0-0.4); EOS % 2.4 % (1.0-4.0); HEMATOCRIT 40.8 % (42.0-52.0); MEAN CELL VOLUME 87.2 fl (80.0-94.0); MEAN CORPUSCULAR HGB 30.1 pg (27.0-31.0); MEAN CORPUSCULAR HGB CONC 34.6 g/dl (33.0-37.0); MONO # 0.7 10*3/uL (0.1-1.0); MONO % 7.2 % (3.0-9.0); NEUT # 6.2 10*3/uL (2.3-7.9); NEUT % 60.2 % (47.0-73.0); PLATELET COUNT AUTOMATED 398 10*3/uL (130-400); RED BLOOD COUNT 4.68 10*6/uL (4.50-5.90); RED CELL DISTRI WIDTH 12.4 % (0-14.5); WHITE BLOOD COUNT 10.3 10*3/uL (4.8-10.8)
[2024-09-01 19:09] LABS: BILIRUBIN Negative (Negative); BLOOD Negative (Negative); CLARITY Clear (Clear); COLOR Yellow (Yellow); GLUCOSE Negative (Negative); KETONE Negative (Negative); LEUKO ESTERASE Negative (Negative); NITRITE Negative (Negative); UROBILINOGEN 0.2 E.U./dl (0.0-1.0)
[2024-09-01 19:14] LABS: BUN 9 mg/dl (9-23); CHLORIDE 108 mmol/L (98-107)
[2024-09-01 19:29] LABS: WBC 0-2 wbc/hpf (0-5)
[2024-09-01] MEDS ORDERED: PREDNISONE20 M1 PO (19:59)
[2024-09-01] MEDS ORDERED: AVPAK AZITHROM250 M1 PO (19:59)
[2024-09-01] MEDS ORDERED: AZITHROMYCIN 250 MG TAB PO ONE (20:00)
[2024-09-01] MEDS ORDERED: methylPREDNISolone sod succ 125 MG VIAL IV ONE (20:00)
== END 2024-09-01 20:12 | disposition home or self-care (01) ==
LOC: ED 17:58
PROVIDERS: Nurse Practitioner Family
DX: J40 Bronchitis, not specified as acute or chronic (principal); Z20.822 Contact with and (suspected) exposure to COVID-19; R11.2 Nausea with vomiting, unspecified; F41.9 Anxiety disorder, unspecified; I10 Essential (primary) hypertension; Z88.8 Allergy status to other drugs, medicaments and biological substances

== ENCOUNTER → 2024-09-07 | Outpatient (CLI) | payer BC ==
[~2024-09-07] MED LIST changes: +AVPAK AZITHROM250 M1 PO
[2024-09-07 17:45] LABS: HEMATOCRIT 45.7 % (42.0-52.0); MEAN CORPUSCULAR HGB 29.3 pg (27.0-31.0); MEAN CORPUSCULAR HGB CONC 33.7 g/dl (33.0-37.0); RED BLOOD COUNT 5.25 10*6/uL (4.50-5.90); RED CELL DISTRI WIDTH 12.5 % (0-14.5)
[2024-09-07 18:05] LABS: ALKALINE PHOSPHATASE 93 U/L (46-116); BUN 9 mg/dl (9-23); CHLORIDE 105 mmol/L (98-107); CHOLESTEROL 219 mg/dL (<200); LDL CHOLESTEROL 139 mg/dL (9-159); POTASSIUM 3.6 mmol/L (3.4-5.1); SGPT/ALT 65 U/L (5-49); TOTAL PROTEIN 7.4 gm/dL (6.0-8.0); TRIGLYCERIDES 160 mg/dl (<150)
[2024-09-07 18:08] LABS: VITAMIN D, 25-HYDROXY 10.6 ng/mL (30-100)
[2024-09-08 05:06] LABS: HBsAG SCREEN Negative (Negative); HCV Ab Non Reactive (Non Reactive); HEP B CORE Ab, IgM Negative (Negative)
== END | disposition home or self-care (01) ==
LOC: LAB 16:38
PROVIDERS: ATTEND Family Medicine
DX: Z00.00 Encounter for general adult medical examination without abnormal findings (principal); I10 Essential (primary) hypertension; Z13.220 Encounter for screening for lipoid disorders

== ENCOUNTER 2024-10-18 14:06 | Emergency (ER) | payer BC ==
[~2024-10-18] VITALS: Ht 195.5 cm; Wt 118.4 kg
[2024-10-18 15:04] LABS: BILIRUBIN Negative (Negative); BLOOD Negative (Negative); CLARITY Clear (Clear); COLOR Yellow (Yellow); GLUCOSE Negative (Negative); KETONE Negative (Negative); LEUKO ESTERASE Negative (Negative); NITRITE Negative (Negative); SPECIFIC GRAVITY 1.025 (1.001-1.030); UROBILINOGEN 0.2 E.U./dl (0.0-1.0)
[2024-10-18 15:20] LABS: RBC 0-2 rbc/hpf (0-2); WBC 0-2 wbc/hpf (0-5)
[2024-10-18] MEDS ORDERED: Doxycycline Hyclate 100 MG CAP PO ONE (15:30)
[2024-10-18] MEDS ORDERED: Water, Sterile 10 ML VIAL ONE (15:59)
== END 2024-10-18 15:34 | disposition home or self-care (01) ==
LOC: ED 14:06
PROVIDERS: Nurse Practitioner Family
DX: L02.411 Cutaneous abscess of right axilla (principal); F41.9 Anxiety disorder, unspecified; I10 Essential (primary) hypertension; K21.9 Gastro-esophageal reflux disease without esophagitis; Z88.8 Allergy status to other drugs, medicaments and biological substances

== ENCOUNTER 2024-11-15 10:28 | Emergency (ER) | payer BC ==
[~2024-11-15] VITALS: Ht 195.5 cm; Wt 116.1 kg
[2024-11-15 11:41] LABS: BILIRUBIN Negative (Negative); BLOOD Negative (Negative); CLARITY Clear (Clear); COLOR Yellow (Yellow); GLUCOSE Negative (Negative); KETONE Negative (Negative); LEUKO ESTERASE Negative (Negative); NITRITE Negative (Negative); PH 5.5 (4.5-8.0); SPECIFIC GRAVITY >= 1.030 (1.001-1.030); UROBILINOGEN 0.2 E.U./dl (0.0-1.0)
[2024-11-15 11:47] LABS: BACTERIA 1+; EPITHELIAL CELLS 0-2
[2024-11-15] MEDS ORDERED: AZITHROMYCIN 250 MG TAB PO ONE (12:00)
[2024-11-15] MEDS ORDERED: cefTRIAXone Sodium 500 MG VIAL IM ONE (12:00)
[2024-11-15] MEDS ORDERED: VIBRAMYCIN100 MG PO (12:03)
== END 2024-11-15 12:13 | disposition home or self-care (01) ==
LOC: ED 10:28
PROVIDERS: Internal Medicine
DX: Z20.2 Contact with and (suspected) exposure to infections with a predominantly sexual mode of transmission (principal); I10 Essential (primary) hypertension; K21.9 Gastro-esophageal reflux disease without esophagitis; F17.200 Nicotine dependence, unspecified, uncomplicated; Z88.8 Allergy status to other drugs, medicaments and biological substances

== ENCOUNTER 2024-12-21 17:06 | Emergency (ER) | payer BC ==
[~2024-12-21] VITALS: Ht 195.5 cm; Wt 116.8 kg
[2024-12-21] MEDS ORDERED: LOSARTAN POTASS50 M1 PO (17:30)
[2024-12-21 18:51] LABS: BASO % 0.3 % (0.0-1.0); EOS # 0.2 10*3/uL (0.0-0.4); EOS % 1.8 % (1.0-4.0); HEMATOCRIT 44.9 % (42.0-52.0); MEAN CELL VOLUME 86.5 fl (80.0-94.0); MEAN CORPUSCULAR HGB 29.1 pg (27.0-31.0); MEAN CORPUSCULAR HGB CONC 33.6 g/dl (33.0-37.0); MEAN PLATELET VOLUME 8.9 fl (9.6-12.3); MONO # 0.8 10*3/uL (0.1-1.0); MONO % 7.9 % (3.0-9.0); NEUT % 60.6 % (47.0-73.0); PLATELET COUNT AUTOMATED 301 10*3/uL (130-400); RED BLOOD COUNT 5.19 10*6/uL (4.50-5.90); RED CELL DISTRI WIDTH 12.1 % (0-14.5); WHITE BLOOD COUNT 9.9 10*3/uL (4.8-10.8)
[2024-12-21 19:10] LABS: BUN 16 mg/dl (9-23); CHLORIDE 105 mmol/L (98-107); POTASSIUM 4.1 mmol/L (3.4-5.1)
== END 2024-12-21 19:27 | disposition home or self-care (01) ==
LOC: ED 17:06
PROVIDERS: Nurse Practitioner Family
DX: R07.89 Other chest pain (principal); I10 Essential (primary) hypertension; K21.9 Gastro-esophageal reflux disease without esophagitis; Z79.899 Other long term (current) drug therapy; Z88.8 Allergy status to other drugs, medicaments and biological substances

== ENCOUNTER → 2024-12-27 | Outpatient (CLI) | payer BC ==
[~2024-12-27] MED LIST changes: +LOSARTAN POTASS50 M1 PO
[2024-12-27 17:18] LABS: MEAN CELL VOLUME 86.2 fl (80.0-94.0); MEAN CORPUSCULAR HGB 29.1 pg (27.0-31.0); MEAN CORPUSCULAR HGB CONC 33.7 g/dl (33.0-37.0); MEAN PLATELET VOLUME 8.6 fl (9.6-12.3); RED BLOOD COUNT 4.99 10*6/uL (4.50-5.90); RED CELL DISTRI WIDTH 12.2 % (0-14.5); WHITE BLOOD COUNT 9.2 10*3/uL (4.8-10.8)
[2024-12-27 17:44] LABS: ALKALINE PHOSPHATASE 88 U/L (46-116); BUN 10 mg/dl (9-23); CHLORIDE 104 mmol/L (98-107); CHOLESTEROL 176 mg/dL (<200); LDL CHOLESTEROL 125 mg/dL (9-159); POTASSIUM 4.1 mmol/L (3.4-5.1); SGPT/ALT 29 U/L (5-49); TOTAL PROTEIN 7.4 gm/dL (6.0-8.0); TRIGLYCERIDES 85 mg/dl (<150)
== END | disposition home or self-care (01) ==
LOC: LAB 16:59
PROVIDERS: ATTEND Family Medicine
DX: E78.00 Pure hypercholesterolemia, unspecified (principal); E74.9 Disorder of carbohydrate metabolism, unspecified; R42 Dizziness and giddiness

== ENCOUNTER → 2025-01-03 | Outpatient (CLI) | payer BC | END | disposition home or self-care (01) | LOC: CARD 08:00 | PROVIDERS: ATTEND Family Medicine | DX: R00.1 Bradycardia, unspecified (principal); R13.10 Dysphagia, unspecified ==

== ENCOUNTER → 2025-02-21 | Outpatient (CLI) | payer BC ==
[2025-02-22 06:07] LABS: HBsAG SCREEN Negative (Negative); HCV Ab Non Reactive (Non Reactive); HEP B CORE Ab, IgM Negative (Negative)
== END | disposition home or self-care (01) ==
LOC: LAB 17:04
PROVIDERS: ATTEND Family Medicine
DX: Z72.51 High risk heterosexual behavior (principal)

== ENCOUNTER 2025-03-31 21:02 | Emergency (ER) | payer BC ==
[~2025-03-31] VITALS: Ht 195.5 cm; Wt 106.6 kg
[2025-03-31] MEDS ORDERED: Sulfamethoxazole/Trimethopri 1 TAB TAB PO ONE (21:40)
[2025-03-31] MEDS ORDERED: SEPTDS PO (21:58)
== END 2025-03-31 22:14 | disposition home or self-care (01) ==
LOC: ED 21:02
DX: L02.31 Cutaneous abscess of buttock (principal); Z88.8 Allergy status to other drugs, medicaments and biological substances; Z79.899 Other long term (current) drug therapy

== ENCOUNTER 2025-05-09 15:37 | Emergency (ER) | payer BC ==
[~2025-05-09] VITALS: Ht 195.5 cm; Wt 106.6 kg
[~2025-05-09 15:37] MED LIST changes: +SEPTDS PO
[2025-05-09] MEDS ORDERED: metroNIDAZOLE 500 MG TAB PO ONE (16:50)
[2025-05-09] MEDS ORDERED: Water, Sterile 10 ML VIAL ONE (17:18)
== END 2025-05-09 16:52 | disposition home or self-care (01) ==
LOC: ED 15:37
DX: Z20.2 Contact with and (suspected) exposure to infections with a predominantly sexual mode of transmission (principal); I10 Essential (primary) hypertension; F41.9 Anxiety disorder, unspecified; Z88.8 Allergy status to other drugs, medicaments and biological substances

== ENCOUNTER 2025-06-11 14:31 | Emergency (ER) | payer BC ==
[2025-06-11 15:12] LABS: BILIRUBIN Negative (Negative); BLOOD Negative (Negative); CLARITY Clear (Clear); COLOR Dark Yellow (Yellow); KETONE Trace (Negative); LEUKO ESTERASE Negative (Negative); NITRITE Negative (Negative); PH 6.5 (4.5-8.0); SPECIFIC GRAVITY 1.020 (1.001-1.030); UROBILINOGEN 1.0 E.U./dl (0.0-1.0)
[2025-06-11 15:33] LABS: BACTERIA TRACE; EPITHELIAL CELLS 0-2
[2025-06-11] MEDS ORDERED: VIBRAMYCIN100 MG PO (16:41)
[2025-06-11] MEDS ORDERED: metroNIDAZOLE 500 MG TAB PO ONE (16:45)
[2025-06-11] MEDS ORDERED: Water, Sterile 10 ML VIAL ONE (17:16)
== END 2025-06-11 18:14 | disposition home or self-care (01) ==
LOC: ED 14:31
PROVIDERS: Student in an Organized Health Care Education/Training Program
DX: R30.0 Dysuria (principal); R30.9 Painful micturition, unspecified; Z20.2 Contact with and (suspected) exposure to infections with a predominantly sexual mode of transmission; Z88.8 Allergy status to other drugs, medicaments and biological substances; Z79.899 Other long term (current) drug therapy

== ENCOUNTER → 2025-06-14 | Outpatient (CLI) | payer BC ==
[2025-06-14 17:01] LABS: MEAN CELL VOLUME 89.3 fl (80.0-94.0); MEAN CORPUSCULAR HGB 30.1 pg (27.0-31.0); MEAN PLATELET VOLUME 8.9 fl (9.6-12.3); NUCLEATED RED BLOOD CELL 0.0 % (0.0-0.0); NUCLEATED RED BLOOD CELL 0.0 10*3/uL (0.0-0.0); PLATELET COUNT AUTOMATED 289.0 10*3/uL (130-400); RED CELL DISTRI WIDTH 13.7 % (0-14.5)
[2025-06-14 17:27] LABS: BUN 12 mg/dl (9-23); FREE T4 1.11 ng/dl (0.89-1.76); LDL CHOLESTEROL 82 mg/dL (9-159); SGPT/ALT 38 U/L (5-49)
[2025-06-14 17:45] LABS: VITAMIN D, 25-HYDROXY 27.7 ng/mL (30-100)
== END | disposition home or self-care (01) ==
LOC: LAB 16:41
PROVIDERS: ATTEND Family Medicine
DX: I10 Essential (primary) hypertension (principal); M54.50 Low back pain, unspecified; Z72.51 High risk heterosexual behavior

== ENCOUNTER 2025-06-29 21:24 | Emergency (ER) | payer BC ==
[~2025-06-29] VITALS: Ht 195.6 cm; Wt 106.6 kg
== END 2025-06-29 22:34 | disposition home or self-care (01) ==
LOC: ED 21:24
DX: L02.415 Cutaneous abscess of right lower limb (principal); Z88.8 Allergy status to other drugs, medicaments and biological substances; Z79.899 Other long term (current) drug therapy

== ENCOUNTER 2025-07-31 13:40 | Emergency (ER) | payer BC ==
[~2025-07-31] VITALS: Ht 195.5 cm; Wt 108.9 kg
[2025-07-31 14:18] LABS: BILIRUBIN Negative (Negative); BLOOD Negative (Negative); CLARITY Clear (Clear); COLOR Yellow (Yellow); KETONE Trace (Negative); LEUKO ESTERASE Negative (Negative); NITRITE Negative (Negative); PH 5.5 (4.5-8.0); SPECIFIC GRAVITY >= 1.030 (1.001-1.030); UROBILINOGEN 1.0 E.U./dl (0.0-1.0)
[2025-07-31 14:57] LABS: BACTERIA 1+; MUCOUS 2+; RBC 0-2 rbc/hpf (0-2)
[2025-07-31 14:58] LABS: CALCIUM OXALATE CRYSTALS 1+
[2025-07-31] MEDS ORDERED: Lidocaine Hydrochloride 5 ML AMP IM ONE (16:10)
[2025-07-31] MEDS ORDERED: AZITHROMYCIN 250 MG TAB PO ONE (16:10)
== END 2025-07-31 16:41 | disposition home or self-care (01) ==
LOC: ED 13:40
PROVIDERS: Emergency Medicine
DX: Z20.2 Contact with and (suspected) exposure to infections with a predominantly sexual mode of transmission (principal); I10 Essential (primary) hypertension; K21.9 Gastro-esophageal reflux disease without esophagitis; F17.210 Nicotine dependence, cigarettes, uncomplicated; Z88.8 Allergy status to other drugs, medicaments and biological substances